=== PATIENT | male | born 1990 | race Caucasian/White ===

== ENCOUNTER 2016-10-11 16:20 | Inpatient (IN) | payer MEDICAID ==
[~2016-10-11] VITALS: Ht 162.6 cm; Wt 54.1 kg
[~2016-10-11 16:20] MED LIST: ASCO500 GT; BACL10TA GT; DIAZ10 GT; ESOM20CA31 GT; GLYC2TAB13 GT; LORA2TAB2 GT; METO10L GT; MIRALAX GT; PHEN-649 GT; PHEN50 GT; PHEN60TA15 GT; TIZA2TAB4 PO; TRIH2TAB3 GT
[2016-10-11] MEDS ORDERED: LORazepam 2 MG/ML VIAL IM ONE (16:45)
[2016-10-11] MEDS ORDERED: [UNRECOGNIZED DRUG - CODE] PO (16:46)
[2016-10-11] MEDS ORDERED: FAMO20 PO (16:46)
[2016-10-11] MEDS ORDERED: GENT100P5 IV (16:46)
[2016-10-11] MEDS ORDERED: LACT30L PO (16:46)
[2016-10-11] MEDS ORDERED: [UNRECOGNIZED DRUG - CODE] PO (16:46)
[2016-10-11 17:12] LABS: BASOPHILS # (AUTO) 0.03 K/uL (0.00-0.20); BASOPHILS % (AUTO) 0.5 % (0.0-2.0); EOSINOPHILS # (AUTO) 0.18 K/uL (0.00-0.70); EOSINOPHILS % (AUTO) 3.09 % (1.0-6.0); HEMATOCRIT 54.8 % (41-53); HEMOGLOBIN 18.1 g/dL (13.5-17.5); LYMPHOCYTES % (AUTO) 16.6 % (22.0-44.0); MEAN CORPUSCULAR HEMOGLOBIN 30.7 pg (26.0-34.0); MEAN CORPUSCULAR HGB CONC 33.1 G/dL (31.0-37.0); MEAN CORPUSCULAR VOLUME 93 fL (80-100); MONOCYTES # (AUTO) 0.4 K/uL (0.1-1.0); NEUTROPHILS # (AUTO) 4.2 K/uL (1.8-7.7); NEUTROPHILS % (AUTO) 72.9 % (40.0-70.0); PLATELET COUNT (AUTO) 206 K/uL (150-450); RED BLOOD CELL COUNT(AUTO) 5.91 MIL/uL (4.50-5.90); WHITE BLOOD COUNT (AUTO) 5.7 K/uL (4.5-11.0)
[2016-10-11 17:17] LABS: ANION GAP 12 mmol/L (8-16); CALCIUM, TOTAL 9.3 mg/dL (8.8-10.5); CARBON DIOXIDE 30 mmol/L (22-29); CHLORIDE 106 mmol/L (98-107); CREATININE 0.54 mg/dL (0.60-1.30); GLOMERULAR FILTR. RATE CALC > 60 mL/min (>60); INR 1.1 (0.9-1.1); POTASSIUM 3.9 mmol/L (3.5-5.1); PROTHROMBIN TIME 11.2 SEC (9.4-11.6); SODIUM SERUM 148 mmol/L (136-145); UREA NITROGEN, BLOOD 19 mg/dL (7-18)
[2016-10-11 17:24] LABS: AMMONIA 42 umol/L (11-32); LACTIC ACID 1.8 mmol/L (0.4-2.0)
[2016-10-11 17:27] LABS: TROPONIN I < 0.02 ng/mL (0.00-0.05)
[2016-10-11] MEDS ORDERED: ACETAMINOPHEN 650 MG RECTAL SUPPOSITORY PR ONE (17:30)
[2016-10-11] MEDS ORDERED: SODIUM CHLORIDE 0.9% 1,000 ML IV ONE ×2 (17:30→18:45)
[2016-10-11 17:31] LABS: ALANINE AMINOTRANSFERASE 54 U/L (12-78); ALBUMIN 4.9 g/dL (3.4-5.0); ASPARTATE AMINOTRANSFERASE 37 U/L (15-37); BILIRUBIN,TOTAL 0.4 mg/dL (0.1-1.0); TOTAL PROTEIN, SERUM 9.1 g/dL (6.4-8.2)
[2016-10-11 17:46] LABS: ACETAMINOPHEN < 2 mcg/mL (10-30)
[2016-10-11 18:00] LABS: SALICYLATE < 2.8 mg/dL (2.8-20.0)
[2016-10-11] MEDS ORDERED: LACTULOSE 200 GM/300 ML RECTAL SOLUTION PR ONE (18:30)
[2016-10-11 19:39] LABS: GLUCOSE,POINT OF CARE 87 MG/DL (70-110)
[2016-10-11 20:24] LABS: APPEARANCE,URINE TURBID (CLEAR); GLUCOSE, URINE (UA) NEGATIVE (NEGATIVE); KETONES,URINE 40 mg/dL (NEGATIVE); OCCULT BLOOD,URINE LARGE (NEGATIVE); PH,URINE 8.5 (5.0-8.0); PROTEIN,URINE SEE CONFIRM (NEGATIVE)
[2016-10-11 20:32] LABS: LEUKOCYTE ESTERASE ,URINE SMALL (NEGATIVE); RBC,URINE 51-100 /HPF (0-2); SULFOSALICYLIC ACID,URINE 3+ (Negative)
[2016-10-11 20:33] LABS: SQUAMOUS EPITHELIAL CELL,UR Rare /LPF (None Seen)
[2016-10-11 20:46] LABS: TRIPLE PHOSPHATE CRYSTAL,UR Moderate /LPF (None Seen)
[2016-10-11] MEDS ORDERED: PIPERACILLIN/TAZO 3.375 GM/D5W 50 ML IV SCH (21:00)
[2016-10-11] MEDS ORDERED: ONDANSETRON HCL 4 MG/2 ML VIAL IVP PRN (21:15)
[2016-10-11] MEDS ORDERED: 0.9% SODIUM CHLORIDE 10 ML SYRINGE IVP PRN (21:15)
[2016-10-11] MEDS ORDERED: ACETAMINOPHEN 325 MG TABLET PO PRN (21:15)
[2016-10-11] MEDS ORDERED: VANCOMYCIN HCL 1.5 GM in DEXTROSE 5%-WATER 250 ML IV ONE (21:30)
[2016-10-11] MEDS ORDERED: BISACODYL 10 MG RECTAL RECTAL SUPPOSITORY PR PRN (21:45)
[2016-10-11] MEDS ORDERED: MAGNESIUM HYDROXIDE SUSPENSION 30 ML UDCUP PO PRN (21:45)
[2016-10-11] MEDS ORDERED: ALBUTEROL SULFATE 2.5 MG/0.5 ML NEB SOLUTION NEB PRN (21:45)
[2016-10-11] MEDS ORDERED: DEXTROSE 5%-0.45% SODIUM CHL 1,000 ML IV ONE (21:45)
[2016-10-11] MEDS ORDERED: VANCOMYCIN HCL 1.5 GM in DEXTROSE 5%-WATER 250 ML IV SCH (22:00)
[2016-10-11 22:17] VITALS: BP 132/82
[2016-10-11 23:55] VITALS: BP 121/55
[2016-10-12] MEDS: HEPARIN SODIUM,PORCINE 5,000 UNITS/ML VIAL SQ SCH ×3 (00:24→15:54)
[2016-10-12] MEDS: PIPERACILLIN/TAZO 3.375 GM/D5W 50 ML IV SCH ×4 (03:24→20:46)
[2016-10-12 05:23] VITALS: BP 126/76
[2016-10-12 06:13] LABS: BASOPHILS % (AUTO) 0.3 % (0.0-2.0); EOSINOPHILS % (AUTO) 1.7 % (1.0-6.0); HEMATOCRIT 50.3 % (41-53); HEMOGLOBIN 16.1 g/dL (13.5-17.5); LYMPHOCYTES # (AUTO) 0.9 K/uL (1.0-4.8); LYMPHOCYTES % (AUTO) 14.1 % (22.0-44.0); MEAN CORPUSCULAR HEMOGLOBIN 30.2 pg (26.0-34.0); MEAN CORPUSCULAR HGB CONC 32.1 G/dL (31.0-37.0); MEAN CORPUSCULAR VOLUME 94 fL (80-100); MONOCYTES # (AUTO) 0.5 K/uL (0.1-1.0); NEUTROPHILS # (AUTO) 4.9 K/uL (1.8-7.7); NEUTROPHILS % (AUTO) 75.9 % (40.0-70.0); PLATELET COUNT (AUTO) 164 K/uL (150-450); RED BLOOD CELL COUNT(AUTO) 5.34 MIL/uL (4.50-5.90); RED CELL DISTRIBUTION WIDTH 14.2 % (11.5-14.5); WHITE BLOOD COUNT (AUTO) 6.5 K/uL (4.5-11.0)
[2016-10-12 06:48] LABS: ANION GAP 9 mmol/L (8-16); CALCIUM, TOTAL 7.9 mg/dL (8.8-10.5); CARBON DIOXIDE 31 mmol/L (22-29); CHLORIDE 110 mmol/L (98-107); CREATININE 0.41 mg/dL (0.60-1.30); GLOMERULAR FILTR. RATE CALC > 60 mL/min (>60); POTASSIUM 3.5 mmol/L (3.5-5.1); SODIUM SERUM 150 mmol/L (136-145); UREA NITROGEN, BLOOD 11 mg/dL (7-18)
[2016-10-12] MEDS ORDERED: VANCOMYCIN HCL 1.5 GM in DEXTROSE 5%-WATER 250 ML IV SCH ×2 (08:00)
[2016-10-12 08:01] VITALS: BP 139/74
[2016-10-12] MEDS: DOCUSATE SODIUM 100 MG CAPSULE PO SCH ×2 (09:00→20:46)
[2016-10-12] MEDS: PANTOPRAZOLE SODIUM 40 MG/VIAL IVP SCH (09:32)
[2016-10-12] MEDS ORDERED: [UNRECOGNIZED DRUG - REMARK] PO SCH (10:45)
[2016-10-12] MEDS ORDERED: PHENYTOIN 50 MG CHEWABLE TABLET GT SCH ×2 (10:45→16:00)
[2016-10-12] MEDS ORDERED: PHENOBARBITAL 30 MG/7.5 ML GT SCH ×2 (10:45→21:00)
[2016-10-12] MEDS ORDERED: TiZANidine HCL 4 MG TABLET GT SCH (11:00)
[2016-10-12 12:07] VITALS: BP 161/76
[2016-10-12] MEDS: POLYETHYLENE GLYCOL 3350 17 GM PACKET GT SCH (13:45)
[2016-10-12 15:33] LABS: ANION GAP 12 mmol/L (8-16); CALCIUM, TOTAL 8.7 mg/dL (8.8-10.5); CARBON DIOXIDE 32 mmol/L (22-29); CHLORIDE 107 mmol/L (98-107); CREATININE 0.65 mg/dL (0.60-1.30); GLOMERULAR FILTR. RATE CALC > 60 mL/min (>60); POTASSIUM 3.4 mmol/L (3.5-5.1); SODIUM SERUM 151 mmol/L (136-145); UREA NITROGEN, BLOOD 8 mg/dL (7-18)
[2016-10-12] MEDS ORDERED: DIAZ5 PO (15:40)
[2016-10-12 15:47] VITALS: BP 130/64
[2016-10-12] MEDS: TiZANidine HCL 4 MG TABLET GT SCH ×2 (15:53→20:45)
[2016-10-12] MEDS: GLYCOPYRROLATE 1 MG TABLET GT SCH ×2 (15:53→20:44)
[2016-10-12] MEDS: TRIHEXYPHENIDYL HCL 2 MG TABLET GT SCH ×2 (15:54→20:44)
[2016-10-12] MEDS: DIAZEPAM 5 MG TABLET GT SCH ×2 (15:55→20:45)
[2016-10-12] MEDS: BACLOFEN 10 MG TABLET GT SCH ×2 (15:58→20:47)
[2016-10-12] MEDS: ACETAMINOPHEN 325 MG TABLET PO PRN (15:59)
[2016-10-12] MEDS ORDERED: BACLOFEN 10 MG TABLET GT SCH (16:00)
[2016-10-12] MEDS ORDERED: DIAZEPAM 5 MG TABLET GT SCH (16:00)
[2016-10-12] MEDS: VANCOMYCIN HCL 1 GM/D5% WATER 200 ML IV SCH (17:33)
[2016-10-12] MEDS: PHENYTOIN 50 MG CHEWABLE TABLET GT SCH (17:34)
[2016-10-12] MEDS: LORazepam 2 MG/ML VIAL IVP PRN (17:43)
[2016-10-12 19:39] VITALS: BP 111/61
[2016-10-12 20:58] LABS: ANION GAP 5 mmol/L (8-16); CALCIUM, TOTAL 8.3 mg/dL (8.8-10.5); CARBON DIOXIDE 34 mmol/L (22-29); CHLORIDE 108 mmol/L (98-107); CREATININE 0.62 mg/dL (0.60-1.30); GLOMERULAR FILTR. RATE CALC > 60 mL/min (>60); POTASSIUM 3.2 mmol/L (3.5-5.1); SODIUM SERUM 147 mmol/L (136-145); UREA NITROGEN, BLOOD 9 mg/dL (7-18)
[2016-10-12] MEDS ORDERED: 0.9% SODIUM CHLORIDE 5 ML NEB SOLUTION NEB ONE (21:14)
[2016-10-12] MEDS: SODIUM CHLORIDE UR SCH (23:23)
[2016-10-12] MEDS: [UNRECOGNIZED DRUG - OTHER] UR SCH (23:23)
[2016-10-12] MEDS: GENTAMICIN UR SCH (23:23)
[2016-10-12 23:38] VITALS: BP 137/67
[2016-10-13] MEDS: VANCOMYCIN HCL 1 GM/D5% WATER 200 ML IV SCH ×2 (00:25→07:44)
[2016-10-13] MEDS: HEPARIN SODIUM,PORCINE 5,000 UNITS/ML VIAL SQ SCH ×4 (00:25→23:56)
[2016-10-13] MEDS: PIPERACILLIN/TAZO 3.375 GM/D5W 50 ML IV SCH ×4 (02:29→21:01)
[2016-10-13 02:50] LABS: ANION GAP 5 mmol/L (8-16); CALCIUM, TOTAL 7.9 mg/dL (8.8-10.5); CARBON DIOXIDE 33 mmol/L (22-29); CHLORIDE 106 mmol/L (98-107); CREATININE 0.76 mg/dL (0.60-1.30); GLOMERULAR FILTR. RATE CALC > 60 mL/min (>60); POTASSIUM 3.1 mmol/L (3.5-5.1); SODIUM SERUM 144 mmol/L (136-145); UREA NITROGEN, BLOOD 12 mg/dL (7-18)
[2016-10-13 04:43] VITALS: BP 130/78
[2016-10-13] MEDS: PHENYTOIN 50 MG CHEWABLE TABLET GT SCH ×2 (06:28→15:08)
[2016-10-13] MEDS: PHENOBARBITAL 30 MG/7.5 ML PO SCH ×2 (06:36→09:00)
[2016-10-13 07:03] LABS: BASOPHILS % (AUTO) 0.4 % (0.0-2.0); EOSINOPHILS % (AUTO) 1.9 % (1.0-6.0); HEMATOCRIT 49.7 % (41-53); HEMOGLOBIN 16.3 g/dL (13.5-17.5); LYMPHOCYTES # (AUTO) 1.1 K/uL (1.0-4.8); LYMPHOCYTES % (AUTO) 14.9 % (22.0-44.0); MEAN CORPUSCULAR HEMOGLOBIN 30.5 pg (26.0-34.0); MEAN CORPUSCULAR HGB CONC 32.9 G/dL (31.0-37.0); MEAN CORPUSCULAR VOLUME 93 fL (80-100); MONOCYTES # (AUTO) 0.6 K/uL (0.1-1.0); MONOCYTES % (AUTO) 8.5 % (2.0-9.0); NEUTROPHILS # (AUTO) 5.3 K/uL (1.8-7.7); NEUTROPHILS % (AUTO) 74.3 % (40.0-70.0); PLATELET COUNT (AUTO) 154 K/uL (150-450); RED BLOOD CELL COUNT(AUTO) 5.35 MIL/uL (4.50-5.90); RED CELL DISTRIBUTION WIDTH 14.1 % (11.5-14.5); WHITE BLOOD COUNT (AUTO) 7.1 K/uL (4.5-11.0)
[2016-10-13 07:29] LABS: ALANINE AMINOTRANSFERASE 44 U/L (12-78); ALBUMIN 4.1 g/dL (3.4-5.0); ANION GAP 8 mmol/L (8-16); ASPARTATE AMINOTRANSFERASE 41 U/L (15-37); BILIRUBIN,TOTAL 0.5 mg/dL (0.1-1.0); CALCIUM, TOTAL 8.8 mg/dL (8.8-10.5); CARBON DIOXIDE 32 mmol/L (22-29); CHLORIDE 106 mmol/L (98-107); CHOL/HDL RATIO 2.4 (4.2-7.3); CREATININE 0.93 mg/dL (0.60-1.30); GLOMERULAR FILTR. RATE CALC > 60 mL/min (>60); PHOSPHORUS 2.9 mg/dL (2.5-4.9); POTASSIUM 3.6 mmol/L (3.5-5.1); SODIUM SERUM 146 mmol/L (136-145); THYROID STIMULATING HORMONE 1.15 uIU/mL (0.36-3.74); TOTAL PROTEIN, SERUM 7.9 g/dL (6.4-8.2); UREA NITROGEN, BLOOD 14 mg/dL (7-18)
[2016-10-13 08:16] VITALS: BP 130/79
[2016-10-13 09:46] LABS: PHENOBARBITAL 54 mcg/mL (15-40)
[2016-10-13] MEDS: DIAZEPAM 5 MG TABLET GT SCH ×3 (09:47→21:00)
[2016-10-13] MEDS: ASCORBIC ACID 500 MG TABLET GT SCH (09:47)
[2016-10-13] MEDS: PANTOPRAZOLE SODIUM 40 MG/VIAL IVP SCH (09:47)
[2016-10-13] MEDS: DOCUSATE SODIUM 100 MG CAPSULE PO SCH ×2 (09:48→21:03)
[2016-10-13] MEDS: POLYETHYLENE GLYCOL 3350 17 GM PACKET GT SCH (09:48)
[2016-10-13] MEDS: TiZANidine HCL 4 MG TABLET GT SCH ×3 (09:49→21:02)
[2016-10-13] MEDS: TRIHEXYPHENIDYL HCL 2 MG TABLET GT SCH ×3 (09:49→21:00)
[2016-10-13] MEDS: BACLOFEN 10 MG TABLET GT SCH ×3 (09:50→21:00)
[2016-10-13] MEDS: GLYCOPYRROLATE 1 MG TABLET GT SCH ×3 (09:51→21:00)
[2016-10-13 12:21] VITALS: BP 117/71
[2016-10-13 16:07] VITALS: BP 120/71
[2016-10-13 16:17] LABS: ANION GAP 10 mmol/L (8-16); CALCIUM, TOTAL 8.3 mg/dL (8.8-10.5); CARBON DIOXIDE 31 mmol/L (22-29); CHLORIDE 106 mmol/L (98-107); CREATININE 1.19 mg/dL (0.60-1.30); GLOMERULAR FILTR. RATE CALC > 60 mL/min (>60); POTASSIUM 3.7 mmol/L (3.5-5.1); SODIUM SERUM 147 mmol/L (136-145); UREA NITROGEN, BLOOD 17 mg/dL (7-18)
[2016-10-13 20:00] VITALS: BP 136/93
[2016-10-13] MEDS ORDERED: PHENOBARBITAL 30 MG/7.5 ML PO SCH (21:00)
[2016-10-13] MEDS: SODIUM CHLORIDE UR SCH (21:01)
[2016-10-13] MEDS: GENTAMICIN UR SCH (21:01)
[2016-10-13] MEDS: [UNRECOGNIZED DRUG - OTHER] UR SCH (21:01)
[2016-10-13 21:55] LABS: CALCIUM, TOTAL 8.8 mg/dL (8.8-10.5); CREATININE 1.57 mg/dL (0.60-1.30); POTASSIUM 3.7 mmol/L (3.5-5.1)
[2016-10-13 23:44] VITALS: BP 119/60
[2016-10-13] MEDS: OxyCODONE HCL/ACETAMINOPHEN 5-325 MG TABLET PO PRN (23:59)
[2016-10-14] MEDS: PIPERACILLIN/TAZO 3.375 GM/D5W 50 ML IV SCH ×2 (02:36→07:38)
[2016-10-14] MEDS: LORazepam 2 MG/ML VIAL IVP PRN (03:05)
[2016-10-14 05:07] VITALS: BP 101/49
[2016-10-14] MEDS: DIAZEPAM 5 MG TABLET GT SCH ×4 (07:30→22:25)
[2016-10-14] MEDS: POLYETHYLENE GLYCOL 3350 17 GM PACKET GT SCH (07:30)
[2016-10-14] MEDS: ASCORBIC ACID 500 MG TABLET GT SCH (07:30)
[2016-10-14] MEDS: HEPARIN SODIUM,PORCINE 5,000 UNITS/ML VIAL SQ SCH ×2 (07:30→16:18)
[2016-10-14 07:31] LABS: BASOPHILS # (AUTO) 0.01 K/uL (0.00-0.20); BASOPHILS % (AUTO) 0.2 % (0.0-2.0); EOSINOPHILS # (AUTO) 0.02 K/uL (0.00-0.70); EOSINOPHILS % (AUTO) 0.37 % (1.0-6.0); HEMATOCRIT 45.7 % (41-53); LYMPHOCYTES # (AUTO) 0.6 K/uL (1.0-4.8); LYMPHOCYTES % (AUTO) 9.5 % (22.0-44.0); MEAN CORPUSCULAR HEMOGLOBIN 30.6 pg (26.0-34.0); MEAN CORPUSCULAR HGB CONC 32.8 G/dL (31.0-37.0); MEAN CORPUSCULAR VOLUME 93 fL (80-100); MONOCYTES # (AUTO) 0.6 K/uL (0.1-1.0); MONOCYTES % (AUTO) 9.5 % (2.0-9.0); NEUTROPHILS # (AUTO) 5.4 K/uL (1.8-7.7); NEUTROPHILS % (AUTO) 80.4 % (40.0-70.0); PLATELET COUNT (AUTO) 175 K/uL (150-450); RED CELL DISTRIBUTION WIDTH 14.1 % (11.5-14.5); WHITE BLOOD COUNT (AUTO) 6.7 K/uL (4.5-11.0)
[2016-10-14] MEDS: PHENYTOIN 50 MG CHEWABLE TABLET GT SCH ×2 (07:31→16:32)
[2016-10-14] MEDS: GLYCOPYRROLATE 1 MG TABLET GT SCH ×3 (07:31→22:25)
[2016-10-14] MEDS: BACLOFEN 10 MG TABLET GT SCH (07:32)
[2016-10-14] MEDS: TRIHEXYPHENIDYL HCL 2 MG TABLET GT SCH ×3 (07:33→22:24)
[2016-10-14] MEDS: TiZANidine HCL 4 MG TABLET GT SCH ×3 (07:34→22:25)
[2016-10-14] MEDS: DOCUSATE SODIUM 100 MG CAPSULE PO SCH ×2 (07:37→22:26)
[2016-10-14] MEDS: PANTOPRAZOLE SODIUM 40 MG/VIAL IVP SCH (07:37)
[2016-10-14] MEDS: PHENOBARBITAL 30 MG/7.5 ML PO SCH (07:38)
[2016-10-14 07:54] LABS: ALBUMIN 3.6 g/dL (3.4-5.0); BILIRUBIN,TOTAL 0.4 mg/dL (0.1-1.0); CALCIUM, TOTAL 8.3 mg/dL (8.8-10.5); CREATININE 1.97 mg/dL (0.60-1.30); POTASSIUM 3.2 mmol/L (3.5-5.1); TOTAL PROTEIN, SERUM 7.3 g/dL (6.4-8.2)
[2016-10-14] MEDS ORDERED: VANCOMYCIN HCL 1 GM/D5% WATER 200 ML IV SCH (08:00)
[2016-10-14 09:04] VITALS: BP 103/49
[2016-10-14] MEDS ORDERED: SODIUM CHLORIDE 0.9% 500 ML IV ONE (11:15)
[2016-10-14] MEDS ORDERED: POTASSIUM CHL 10 MEQ/WATER 50 ML IV SCH (11:30)
[2016-10-14 11:32] LABS: BASOPHILS % (AUTO) 0.6 % (0.0-2.0); EOSINOPHILS % (AUTO) 1.2 % (1.0-6.0); HEMATOCRIT 44.6 % (41-53); HEMOGLOBIN 14.8 g/dL (13.5-17.5); LYMPHOCYTES # (AUTO) 1.3 K/uL (1.0-4.8); LYMPHOCYTES % (AUTO) 22.2 % (22.0-44.0); MEAN CORPUSCULAR HEMOGLOBIN 30.1 pg (26.0-34.0); MEAN CORPUSCULAR HGB CONC 33.1 G/dL (31.0-37.0); MEAN CORPUSCULAR VOLUME 91 fL (80-100); MONOCYTES # (AUTO) 0.7 K/uL (0.1-1.0); MONOCYTES % (AUTO) 11.1 % (2.0-9.0); NEUTROPHILS # (AUTO) 3.9 K/uL (1.8-7.7); NEUTROPHILS % (AUTO) 64.9 % (40.0-70.0); PLATELET COUNT (AUTO) 143 K/uL (150-450); RED BLOOD CELL COUNT(AUTO) 4.91 MIL/uL (4.50-5.90); RED CELL DISTRIBUTION WIDTH 14.1 % (11.5-14.5); WHITE BLOOD COUNT (AUTO) 5.9 K/uL (4.5-11.0)
[2016-10-14 11:42] LABS: ABG A-A DIFF O2 515.3 mmHg (10-20.0); ABG BASE EXCESS 0.4 mmol/L (-2.0-3.0); ABG HCO3 24.5 mmol/L (22.0-26.0); ABG OXYHEMOGLOBIN 97.9 % (94.0-100.0); ABG PCO2 46 mmHg (35-45); ABG PH 7.365 (7.350-7.450); TEMPERATURE, FAHRENHEIT, BG 98.3 FAHREN (96.0-98.6)
[2016-10-14 11:43] LABS: CALCIUM, TOTAL 8.1 mg/dL (8.8-10.5); CREATININE 2.36 mg/dL (0.60-1.30); POTASSIUM 3.4 mmol/L (3.5-5.1)
[2016-10-14 11:43] LABS: ALLEN TEST, BLOOD GAS Positive
[2016-10-14 11:48] LABS: ALBUMIN 3.3 g/dL (3.4-5.0); BILIRUBIN,TOTAL 0.5 mg/dL (0.1-1.0); TOTAL PROTEIN, SERUM 6.8 g/dL (6.4-8.2)
[2016-10-14] MEDS ORDERED: ALBUMIN HUMAN 5%-12.5GM/250ML 250 ML IV ONE ×2 (13:20→13:24)
[2016-10-14] MEDS ORDERED: DEXTROSE 5%-0.45% SODIUM CHL 1,000 ML IV SCH (13:46)
[2016-10-14] MEDS: CefTRIAXone 1 GM/DEXTROSE 50 ML IV SCH (14:31)
[2016-10-14] MEDS ORDERED: RAPID SEQUENCE KIT [RSI] 1 EACH KIT ONE ×2 (14:39)
[2016-10-14] MEDS ORDERED: LORazepam 2 MG/ML VIAL IVP ONE (14:45)
[2016-10-14] MEDS ORDERED: PROPOFOL 1000 MG/ISO-OSM 100 ML IV ONE (14:57)
[2016-10-14] MEDS ORDERED: *CLINICAL-RX DOSING [ENTER DRUG IN COMMENTS] CLINICAL ONE (15:15)
[2016-10-14] MEDS: SODIUM BICARBONATE 75 MEQ in DEXTROSE 5%-WATER 1,000 ML IV SCH (15:46)
[2016-10-14 16:00] VITALS: BP 112/50
[2016-10-14] MEDS: PHENOBARBITAL 30 MG/7.5 ML PEG SCH (16:17)
[2016-10-14 16:18] LABS: ABG A-A DIFF O2 560.8 mmHg (10-20.0); ABG BASE EXCESS 1.1 mmol/L (-2.0-3.0); ABG HCO3 25.7 mmol/L (22.0-26.0); ABG OXYHEMOGLOBIN 97.4 % (94.0-100.0); ABG PCO2 38 mmHg (35-45); ABG PH 7.443 (7.350-7.450); ALLEN TEST, BLOOD GAS Positive; TEMPERATURE, FAHRENHEIT, BG 100.4 FAHREN (96.0-98.6)
[2016-10-14] MEDS: LevETIRAcetam 500 MG in DEXTROSE 5%-WATER 100 ML IV SCH (16:36)
[2016-10-14] MEDS ORDERED: VECURONIUM BROMIDE 10 MG/VIAL IV ONE (16:47)
[2016-10-14] MEDS ORDERED: ETOMIDATE 2 MG/ML 10 ML VIAL IV ONE (16:47)
[2016-10-14] MEDS ORDERED: PIPERACILLIN/TAZO 3.375 GM/D5W 50 ML IV SCH (17:00)
[2016-10-14] MEDS ORDERED: 0.9% SODIUM CHLORIDE 10 ML SYRINGE IVP PRN (18:15)
[2016-10-14 20:00] VITALS: BP 116/44
[2016-10-14 20:38] LABS: CALCIUM, TOTAL 7.9 mg/dL (8.8-10.5); CREATININE 2.28 mg/dL (0.60-1.30)
[2016-10-14 20:47] LABS: POTASSIUM 2.9 mmol/L (3.5-5.1)
[2016-10-14] MEDS ORDERED: POTASSIUM CHLORIDE 10% 40 MEQ/30 ML LIQUID UDCUP PEG ONE (21:30)
[2016-10-14] MEDS: POTASSIUM CHL 10 MEQ/WATER 50 ML IV SCH ×2 (21:55→23:15)
[2016-10-14 22:11] LABS: PHOSPHORUS 2.2 mg/dL (2.5-4.9)
[2016-10-15] VITALS (7 sets, daily range): BP systolic 107–128; BP diastolic 44–79
[2016-10-15] MEDS: PROPOFOL 1000 MG/ISO-OSM 100 ML IV SCH ×3 (00:35→19:05)
[2016-10-15] MEDS: SODIUM BICARBONATE 75 MEQ in DEXTROSE 5%-WATER 1,000 ML IV SCH ×2 (00:36→11:44)
[2016-10-15] MEDS: HEPARIN SODIUM,PORCINE 5,000 UNITS/ML VIAL SQ SCH ×3 (00:36→16:33)
[2016-10-15 02:19] LABS: CALCIUM, TOTAL 7.6 mg/dL (8.8-10.5); CREATININE 2.38 mg/dL (0.60-1.30); POTASSIUM 3.6 mmol/L (3.5-5.1)
[2016-10-15] MEDS: LevETIRAcetam 500 MG in DEXTROSE 5%-WATER 100 ML IV SCH ×2 (04:16→16:33)
[2016-10-15 05:57] LABS: GLUCOSE,POINT OF CARE 96 MG/DL (70-110)
[2016-10-15 06:35] LABS: BASOPHILS % (AUTO) 0.4 % (0.0-2.0); EOSINOPHILS % (AUTO) 3.2 % (1.0-6.0); HEMATOCRIT 42.5 % (41-53); HEMOGLOBIN 13.9 g/dL (13.5-17.5); LYMPHOCYTES # (AUTO) 1.8 K/uL (1.0-4.8); LYMPHOCYTES % (AUTO) 29.2 % (22.0-44.0); MEAN CORPUSCULAR HEMOGLOBIN 30.2 pg (26.0-34.0); MEAN CORPUSCULAR HGB CONC 32.6 G/dL (31.0-37.0); MEAN CORPUSCULAR VOLUME 93 fL (80-100); MONOCYTES # (AUTO) 0.5 K/uL (0.1-1.0); MONOCYTES % (AUTO) 7.9 % (2.0-9.0); NEUTROPHILS # (AUTO) 3.7 K/uL (1.8-7.7); NEUTROPHILS % (AUTO) 59.3 % (40.0-70.0); PLATELET COUNT (AUTO) 121 K/uL (150-450); RED BLOOD CELL COUNT(AUTO) 4.59 MIL/uL (4.50-5.90); RED CELL DISTRIBUTION WIDTH 14.3 % (11.5-14.5); WHITE BLOOD COUNT (AUTO) 6.3 K/uL (4.5-11.0)
[2016-10-15] MEDS: PHENYTOIN 50 MG CHEWABLE TABLET GT SCH ×2 (08:00→16:30)
[2016-10-15 08:17] LABS: CALCIUM, TOTAL 7.7 mg/dL (8.8-10.5); CREATININE 2.09 mg/dL (0.60-1.30); POTASSIUM 3.7 mmol/L (3.5-5.1)
[2016-10-15] MEDS: POLYETHYLENE GLYCOL 3350 17 GM PACKET GT SCH (08:18)
[2016-10-15] MEDS: TiZANidine HCL 4 MG TABLET GT SCH ×3 (08:19→21:13)
[2016-10-15] MEDS: TRIHEXYPHENIDYL HCL 2 MG TABLET GT SCH ×3 (08:20→21:12)
[2016-10-15] MEDS: GLYCOPYRROLATE 1 MG TABLET GT SCH ×3 (08:20→21:12)
[2016-10-15] MEDS: DIAZEPAM 5 MG TABLET GT SCH ×3 (08:21→21:13)
[2016-10-15] MEDS: DOCUSATE SODIUM 100 MG CAPSULE PO SCH ×2 (08:21→22:04)
[2016-10-15] MEDS: PANTOPRAZOLE SODIUM 40 MG/VIAL IVP SCH (08:22)
[2016-10-15] MEDS: PHENOBARBITAL 30 MG/7.5 ML PEG SCH (08:22)
[2016-10-15] MEDS: ASCORBIC ACID 500 MG TABLET GT SCH (09:00)
[2016-10-15 09:21] LABS: ALBUMIN 3.1 g/dL (3.4-5.0); BILIRUBIN,TOTAL 0.4 mg/dL (0.1-1.0); CALCIUM, TOTAL 7.5 mg/dL (8.8-10.5); CREATININE 2.33 mg/dL (0.60-1.30); PHOSPHORUS 2.4 mg/dL (2.5-4.9); POTASSIUM 3.6 mmol/L (3.5-5.1); TOTAL PROTEIN, SERUM 6.6 g/dL (6.4-8.2)
[2016-10-15] MEDS: LORazepam 2 MG/ML VIAL IVP PRN (13:00)
[2016-10-15] MEDS ORDERED: MIDAZOLAM HCL 100 MG in DEXTROSE 5%-WATER 180 ML IV PRN (13:30)
[2016-10-15 14:39] LABS: CALCIUM, TOTAL 7.9 mg/dL (8.8-10.5); CREATININE 2.01 mg/dL (0.60-1.30); POTASSIUM 3.6 mmol/L (3.5-5.1)
[2016-10-15] MEDS: DEXTROSE 5%-0.45% SODIUM CHL 1,000 ML IV SCH (14:39)
[2016-10-15] MEDS: CefTRIAXone 1 GM/DEXTROSE 50 ML IV SCH (14:41)
[2016-10-15 20:37] LABS: CALCIUM, TOTAL 7.7 mg/dL (8.8-10.5); CREATININE 1.87 mg/dL (0.60-1.30); POTASSIUM 3.3 mmol/L (3.5-5.1)
[2016-10-16] VITALS: BP 115/77
[2016-10-16] MEDS: HEPARIN SODIUM,PORCINE 5,000 UNITS/ML VIAL SQ SCH ×3 (00:05→16:12)
[2016-10-16] MEDS: MIDAZOLAM HCL 100 MG in DEXTROSE 5%-WATER 180 ML IV PRN ×2 (01:56→18:53)
[2016-10-16 04:00] VITALS: BP 145/53
[2016-10-16] MEDS: LevETIRAcetam 500 MG in DEXTROSE 5%-WATER 100 ML IV SCH ×2 (05:10→16:12)
[2016-10-16] MEDS ORDERED: SODIUM CHLORIDE 0.9% 250 ML IV ONE ×2 (05:19→15:52)
[2016-10-16] MEDS: DEXTROSE 5%-0.45% SODIUM CHL 1,000 ML IV SCH (05:33)
[2016-10-16 06:04] LABS: BASOPHILS % (AUTO) 0.3 % (0.0-2.0); EOSINOPHILS % (AUTO) 4.3 % (1.0-6.0); HEMATOCRIT 45.5 % (41-53); HEMOGLOBIN 14.5 g/dL (13.5-17.5); LYMPHOCYTES % (AUTO) 18.9 % (22.0-44.0); MEAN CORPUSCULAR HEMOGLOBIN 29.7 pg (26.0-34.0); MEAN CORPUSCULAR VOLUME 93 fL (80-100); MONOCYTES # (AUTO) 0.4 K/uL (0.1-1.0); MONOCYTES % (AUTO) 7.3 % (2.0-9.0); NEUTROPHILS # (AUTO) 3.8 K/uL (1.8-7.7); NEUTROPHILS % (AUTO) 69.2 % (40.0-70.0); PLATELET COUNT (AUTO) 160 K/uL (150-450); RED BLOOD CELL COUNT(AUTO) 4.89 MIL/uL (4.50-5.90); RED CELL DISTRIBUTION WIDTH 14.4 % (11.5-14.5); WHITE BLOOD COUNT (AUTO) 5.6 K/uL (4.5-11.0)
[2016-10-16 06:07] LABS: CREATININE 1.67 mg/dL (0.60-1.30); POTASSIUM 3.3 mmol/L (3.5-5.1)
[2016-10-16] MEDS: PHENYTOIN 50 MG CHEWABLE TABLET GT SCH ×2 (07:00→16:11)
[2016-10-16] MEDS ORDERED: *CLINICAL-LEVOFLOXACIN IVPB DOSING CLINICAL ONE ×2 (07:15)
[2016-10-16 08:00] VITALS: BP 147/61
[2016-10-16] MEDS: LEVOFLOXACIN 750 MG/D5% WATER 150 ML IV SCH (08:35)
[2016-10-16] MEDS: PANTOPRAZOLE SODIUM 40 MG/VIAL IVP SCH (08:35)
[2016-10-16] MEDS: POTASSIUM CHL 10 MEQ/WATER 50 ML IV SCH ×2 (08:35→11:57)
[2016-10-16] MEDS: DIAZEPAM 5 MG TABLET GT SCH ×3 (08:36→21:14)
[2016-10-16] MEDS: PHENOBARBITAL 30 MG/7.5 ML PEG SCH (08:36)
[2016-10-16] MEDS: LORazepam 2 MG/ML VIAL IVP PRN (08:36)
[2016-10-16] MEDS: DOCUSATE SODIUM 100 MG CAPSULE PO SCH ×2 (08:36→21:14)
[2016-10-16] MEDS: ASCORBIC ACID 500 MG TABLET GT SCH (08:36)
[2016-10-16] MEDS: TiZANidine HCL 4 MG TABLET GT SCH ×3 (08:37→21:14)
[2016-10-16] MEDS: GLYCOPYRROLATE 1 MG TABLET GT SCH ×3 (08:37→21:13)
[2016-10-16] MEDS: TRIHEXYPHENIDYL HCL 2 MG TABLET GT SCH ×3 (08:37→21:13)
[2016-10-16] MEDS: POLYETHYLENE GLYCOL 3350 17 GM PACKET GT SCH (08:37)
[2016-10-16 10:01] LABS: ABG A-A DIFF O2 68.7 mmHg (10-20.0); ABG BASE EXCESS 5.7 mmol/L (-2.0-3.0); ABG HCO3 29.2 mmol/L (22.0-26.0); ABG OXYHEMOGLOBIN 98.7 % (94.0-100.0); ABG PCO2 42 mmHg (35-45); ABG PH 7.462 (7.350-7.450)
[2016-10-16 10:03] LABS: ALLEN TEST, BLOOD GAS Positive
[2016-10-16 16:00] VITALS: BP 104/76
[2016-10-16 20:00] VITALS: BP 95/43
[2016-10-16] MEDS ORDERED: SODIUM CHLORIDE 0.9% 500 ML IV ONE (22:03)
[2016-10-17] VITALS (8 sets, daily range): BP systolic 104–136; BP diastolic 31–88
[2016-10-17] MEDS: HEPARIN SODIUM,PORCINE 5,000 UNITS/ML VIAL SQ SCH ×3 (01:19→16:14)
[2016-10-17] MEDS: OxyCODONE HCL/ACETAMINOPHEN 5-325 MG TABLET PO PRN ×2 (01:20→08:17)
[2016-10-17] MEDS: LevETIRAcetam 500 MG in DEXTROSE 5%-WATER 100 ML IV SCH ×2 (03:41→16:15)
[2016-10-17 05:33] LABS: ANION GAP 9 mmol/L (8-16); CALCIUM, TOTAL 8.2 mg/dL (8.8-10.5); CARBON DIOXIDE 28 mmol/L (22-29); CHLORIDE 106 mmol/L (98-107); CREATININE 1.33 mg/dL (0.60-1.30); GLOMERULAR FILTR. RATE CALC > 60 mL/min (>60); SODIUM SERUM 143 mmol/L (136-145)
[2016-10-17 06:19] LABS: UREA NITROGEN, BLOOD 24 mg/dL (7-18)
[2016-10-17] MEDS: PHENYTOIN 50 MG CHEWABLE TABLET GT SCH ×2 (07:11→16:14)
[2016-10-17] MEDS: ASCORBIC ACID 500 MG TABLET GT SCH (08:15)
[2016-10-17] MEDS: PANTOPRAZOLE SODIUM 40 MG/VIAL IVP SCH (08:15)
[2016-10-17] MEDS: LEVOFLOXACIN 750 MG/D5% WATER 150 ML IV SCH (08:15)
[2016-10-17] MEDS: PHENOBARBITAL 30 MG/7.5 ML PEG SCH (08:15)
[2016-10-17] MEDS: DIAZEPAM 5 MG TABLET GT SCH ×3 (08:16→22:21)
[2016-10-17] MEDS: DOCUSATE SODIUM 100 MG CAPSULE PO SCH ×2 (08:16→22:19)
[2016-10-17] MEDS: TiZANidine HCL 4 MG TABLET GT SCH ×3 (08:16→22:21)
[2016-10-17] MEDS: POLYETHYLENE GLYCOL 3350 17 GM PACKET GT SCH (08:16)
[2016-10-17] MEDS: TRIHEXYPHENIDYL HCL 2 MG TABLET GT SCH ×3 (08:16→22:21)
[2016-10-17] MEDS: GLYCOPYRROLATE 1 MG TABLET GT SCH ×3 (08:17→22:22)
[2016-10-17] MEDS: LORazepam 2 MG/ML VIAL IVP PRN ×2 (10:36→14:28)
[2016-10-17] MEDS: MIDAZOLAM HCL 100 MG in DEXTROSE 5%-WATER 180 ML IV PRN (10:36)
[2016-10-17] MEDS: LORazepam 2 MG/ML VIAL IM PRN ×2 (16:14→22:37)
[2016-10-17] MEDS: ACETAMINOPHEN 325 MG TABLET PO PRN (17:48)
[2016-10-18] VITALS: BP 118/73
[2016-10-18] MEDS: HEPARIN SODIUM,PORCINE 5,000 UNITS/ML VIAL SQ SCH ×3 (01:23→15:54)
[2016-10-18 04:00] VITALS: BP 143/96
[2016-10-18] MEDS: LevETIRAcetam 500 MG in DEXTROSE 5%-WATER 100 ML IV SCH ×2 (04:29→15:35)
[2016-10-18] MEDS: ACETAMINOPHEN 325 MG TABLET PO PRN (04:30)
[2016-10-18] MEDS ORDERED: SODIUM CHLORIDE 0.9% 250 ML IV ONE (04:34)
[2016-10-18] MEDS: LORazepam 2 MG/ML VIAL IM PRN (05:20)
[2016-10-18] MEDS: PHENYTOIN 50 MG CHEWABLE TABLET GT SCH (05:20)
[2016-10-18 05:26] LABS: BASOPHILS # (AUTO) 0.01 K/uL (0.00-0.20); BASOPHILS % (AUTO) 0.2 % (0.0-2.0); EOSINOPHILS # (AUTO) 0.16 K/uL (0.00-0.70); EOSINOPHILS % (AUTO) 2.82 % (1.0-6.0); HEMATOCRIT 43.6 % (41-53); HEMOGLOBIN 14.2 g/dL (13.5-17.5); LYMPHOCYTES # (AUTO) 0.9 K/uL (1.0-4.8); LYMPHOCYTES % (AUTO) 15.5 % (22.0-44.0); MEAN CORPUSCULAR HEMOGLOBIN 30.6 pg (26.0-34.0); MEAN CORPUSCULAR HGB CONC 32.6 G/dL (31.0-37.0); MEAN CORPUSCULAR VOLUME 94 fL (80-100); MONOCYTES # (AUTO) 0.4 K/uL (0.1-1.0); MONOCYTES % (AUTO) 6.4 % (2.0-9.0); NEUTROPHILS # (AUTO) 4.2 K/uL (1.8-7.7); NEUTROPHILS % (AUTO) 75.1 % (40.0-70.0); PLATELET COUNT (AUTO) 159 K/uL (150-450); RED BLOOD CELL COUNT(AUTO) 4.65 MIL/uL (4.50-5.90); RED CELL DISTRIBUTION WIDTH 14.3 % (11.5-14.5); WHITE BLOOD COUNT (AUTO) 5.6 K/uL (4.5-11.0)
[2016-10-18 06:21] LABS: ANION GAP 8 mmol/L (8-16); CALCIUM, TOTAL 8.8 mg/dL (8.8-10.5); CARBON DIOXIDE 27 mmol/L (22-29); CHLORIDE 108 mmol/L (98-107); CREATININE 1.16 mg/dL (0.60-1.30); GLOMERULAR FILTR. RATE CALC > 60 mL/min (>60); POTASSIUM 4.3 mmol/L (3.5-5.1); SODIUM SERUM 143 mmol/L (136-145); UREA NITROGEN, BLOOD 26 mg/dL (7-18)
[2016-10-18 08:00] VITALS: BP 162/129
[2016-10-18] MEDS: LEVOFLOXACIN 750 MG/D5% WATER 150 ML IV SCH (08:47)
[2016-10-18] MEDS: POLYETHYLENE GLYCOL 3350 17 GM PACKET GT SCH (09:22)
[2016-10-18] MEDS: PHENOBARBITAL 30 MG/7.5 ML PEG SCH (09:23)
[2016-10-18] MEDS: ASCORBIC ACID 500 MG TABLET GT SCH (09:23)
[2016-10-18] MEDS: PANTOPRAZOLE SODIUM 40 MG/VIAL IVP SCH (09:23)
[2016-10-18] MEDS: DOCUSATE SODIUM 100 MG CAPSULE PO SCH ×2 (09:24→21:24)
[2016-10-18] MEDS: DIAZEPAM 5 MG TABLET GT SCH ×3 (09:24→21:24)
[2016-10-18] MEDS: TiZANidine HCL 4 MG TABLET GT SCH ×3 (09:32→21:24)
[2016-10-18] MEDS: TRIHEXYPHENIDYL HCL 2 MG TABLET GT SCH ×3 (09:32→21:23)
[2016-10-18] MEDS: GLYCOPYRROLATE 1 MG TABLET GT SCH ×3 (09:33→21:23)
[2016-10-18] MEDS ORDERED: DEXTROSE 5%-0.45% SODIUM CHL 1,000 ML IV ONE (10:15)
[2016-10-18] MEDS ORDERED: METOCLOPRAMIDE HCL 5 MG/ML 2 ML VIAL IVP ONE (10:30)
[2016-10-18] MEDS ORDERED: LORazepam 2 MG/ML VIAL IVP PRN (10:45)
[2016-10-18 12:00] VITALS: BP 179/119
[2016-10-18] MEDS: METOCLOPRAMIDE HCL 5 MG/ML 2 ML VIAL IVP SCH (15:55)
[2016-10-18 16:00] VITALS: BP 133/93
[2016-10-18] MEDS ORDERED: PHENYTOIN SODIUM 200 MG in SODIUM CHLORIDE 0.9% 100 ML IV SCH (16:00)
[2016-10-18 20:00] VITALS: BP 196/116
[2016-10-19] VITALS (8 sets, daily range): BP systolic 94–165; BP diastolic 49–108
[2016-10-19] MEDS: HEPARIN SODIUM,PORCINE 5,000 UNITS/ML VIAL SQ SCH ×4 (00:59→23:54)
[2016-10-19] MEDS: METOCLOPRAMIDE HCL 5 MG/ML 2 ML VIAL IVP SCH ×4 (01:00→23:54)
[2016-10-19] MEDS: LORazepam 2 MG/ML VIAL IVP PRN ×6 (01:14→23:57)
[2016-10-19] MEDS: ACETAMINOPHEN 325 MG TABLET PO PRN ×2 (04:43→21:32)
[2016-10-19] MEDS: LevETIRAcetam 500 MG in DEXTROSE 5%-WATER 100 ML IV SCH ×2 (04:43→17:08)
[2016-10-19] MEDS ORDERED: SODIUM CHLORIDE 0.9% IV SCH (07:00)
[2016-10-19] MEDS ORDERED: PHENYTOIN SODIUM IV SCH (07:00)
[2016-10-19] MEDS: LEVOFLOXACIN 750 MG/D5% WATER 150 ML IV SCH (09:20)
[2016-10-19] MEDS: PANTOPRAZOLE SODIUM 40 MG/VIAL IVP SCH (09:22)
[2016-10-19 09:23] LABS: BASOPHILS # (AUTO) 0.01 K/uL (0.00-0.20); BASOPHILS % (AUTO) 0.3 % (0.0-2.0); EOSINOPHILS # (AUTO) 0.07 K/uL (0.00-0.70); HEMATOCRIT 39.9 % (41-53); HEMOGLOBIN 13.2 g/dL (13.5-17.5); LYMPHOCYTES # (AUTO) 0.6 K/uL (1.0-4.8); LYMPHOCYTES % (AUTO) 13.9 % (22.0-44.0); MEAN CORPUSCULAR HEMOGLOBIN 30.5 pg (26.0-34.0); MEAN CORPUSCULAR HGB CONC 33.1 G/dL (31.0-37.0); MEAN CORPUSCULAR VOLUME 92 fL (80-100); MONOCYTES # (AUTO) 0.3 K/uL (0.1-1.0); MONOCYTES % (AUTO) 6.8 % (2.0-9.0); NEUTROPHILS # (AUTO) 3.3 K/uL (1.8-7.7); NEUTROPHILS % (AUTO) 77.5 % (40.0-70.0); PLATELET COUNT (AUTO) 161 K/uL (150-450); RED BLOOD CELL COUNT(AUTO) 4.34 MIL/uL (4.50-5.90); RED CELL DISTRIBUTION WIDTH 13.6 % (11.5-14.5); WHITE BLOOD COUNT (AUTO) 4.2 K/uL (4.5-11.0)
[2016-10-19] MEDS: DOCUSATE SODIUM 100 MG CAPSULE PO SCH ×2 (09:23→21:31)
[2016-10-19 09:24] LABS: APPEARANCE,URINE CLOUDY (CLEAR); GLUCOSE, URINE (UA) NEGATIVE (NEGATIVE); KETONES,URINE NEGATIVE (NEGATIVE); LEUKOCYTE ESTERASE ,URINE TRACE (NEGATIVE); OCCULT BLOOD,URINE TRACE (NEGATIVE); PH,URINE 7.5 (5.0-8.0); PROTEIN,URINE NEGATIVE (NEGATIVE)
[2016-10-19] MEDS: DIAZEPAM 5 MG TABLET GT SCH ×3 (09:24→21:31)
[2016-10-19 09:25] LABS: ADD UA MICROSCOPIC YES
[2016-10-19] MEDS: TRIHEXYPHENIDYL HCL 2 MG TABLET GT SCH ×3 (09:25→21:30)
[2016-10-19] MEDS: ASCORBIC ACID 500 MG TABLET GT SCH (09:25)
[2016-10-19] MEDS: PHENOBARBITAL 30 MG/7.5 ML PEG SCH (09:25)
[2016-10-19] MEDS: GLYCOPYRROLATE 1 MG TABLET GT SCH ×3 (09:26→21:31)
[2016-10-19] MEDS: POLYETHYLENE GLYCOL 3350 17 GM PACKET GT SCH (09:26)
[2016-10-19 09:28] LABS: RBC,URINE 0-2 /HPF (0-2); WBC,URINE 0-2 /HPF (0-5)
[2016-10-19] MEDS: TiZANidine HCL 4 MG TABLET GT SCH ×3 (09:28→21:31)
[2016-10-19 09:29] LABS: RENAL EPITHELIAL CELLS,URINE Few /LPF (None Seen); SQUAMOUS EPITHELIAL CELL,UR Few /LPF (None Seen)
[2016-10-19] MEDS: CHOLECALCIFEROL (VIT D3) 1,000 UNITS TABLET PO SCH (09:29)
[2016-10-19 09:39] LABS: ALANINE AMINOTRANSFERASE 212 U/L (12-78); ALBUMIN 3.3 g/dL (3.4-5.0); ANION GAP 8 mmol/L (8-16); ASPARTATE AMINOTRANSFERASE 155 U/L (15-37); BILIRUBIN,TOTAL 0.4 mg/dL (0.1-1.0); CALCIUM, TOTAL 8.8 mg/dL (8.8-10.5); CARBON DIOXIDE 27 mmol/L (22-29); CHLORIDE 106 mmol/L (98-107); CREATININE 0.87 mg/dL (0.60-1.30); GLOMERULAR FILTR. RATE CALC > 60 mL/min (>60); POTASSIUM 4.1 mmol/L (3.5-5.1); SODIUM SERUM 141 mmol/L (136-145); TOTAL PROTEIN, SERUM 7.4 g/dL (6.4-8.2); UREA NITROGEN, BLOOD 19 mg/dL (7-18)
[2016-10-19 10:03] LABS: ANION GAP 12 mmol/L (8-16); CALCIUM, TOTAL 9.1 mg/dL (8.8-10.5); CARBON DIOXIDE 25 mmol/L (22-29); CHLORIDE 103 mmol/L (98-107); CREATININE 0.92 mg/dL (0.60-1.30); GLOMERULAR FILTR. RATE CALC > 60 mL/min (>60); PHOSPHORUS 3.7 mg/dL (2.5-4.9); SODIUM SERUM 140 mmol/L (136-145); UREA NITROGEN, BLOOD 18 mg/dL (7-18)
[2016-10-19] MEDS ORDERED: PHENYTOIN SODIUM 1,000 MG in SODIUM CHLORIDE 0.9% 150 ML IV ONE (10:30)
[2016-10-19] MEDS: OxyCODONE HCL/ACETAMINOPHEN 5-325 MG TABLET PO PRN ×2 (17:12→23:59)
[2016-10-19] MEDS ORDERED: SODIUM CHLORIDE 0.9% 250 ML IV ONE (19:25)
[2016-10-20] VITALS (12 sets, daily range): BP systolic 128–179; BP diastolic 64–122
[2016-10-20] MEDS: LevETIRAcetam 500 MG in DEXTROSE 5%-WATER 100 ML IV SCH ×2 (03:56→15:33)
[2016-10-20] MEDS: LORazepam 2 MG/ML VIAL IVP PRN ×4 (04:23→20:36)
[2016-10-20] MEDS: OxyCODONE HCL/ACETAMINOPHEN 5-325 MG TABLET PO PRN ×2 (04:23→23:12)
[2016-10-20 04:49] LABS: BASOPHILS # (AUTO) 0.03 K/uL (0.00-0.20); BASOPHILS % (AUTO) 0.5 % (0.0-2.0); EOSINOPHILS # (AUTO) 0.16 K/uL (0.00-0.70); EOSINOPHILS % (AUTO) 2.82 % (1.0-6.0); HEMATOCRIT 41.1 % (41-53); HEMOGLOBIN 13.5 g/dL (13.5-17.5); LYMPHOCYTES # (AUTO) 1.2 K/uL (1.0-4.8); LYMPHOCYTES % (AUTO) 20.3 % (22.0-44.0); MEAN CORPUSCULAR HEMOGLOBIN 30.1 pg (26.0-34.0); MEAN CORPUSCULAR HGB CONC 32.9 G/dL (31.0-37.0); MEAN CORPUSCULAR VOLUME 92 fL (80-100); MONOCYTES # (AUTO) 0.5 K/uL (0.1-1.0); MONOCYTES % (AUTO) 8.1 % (2.0-9.0); NEUTROPHILS # (AUTO) 3.9 K/uL (1.8-7.7); NEUTROPHILS % (AUTO) 68.3 % (40.0-70.0); PLATELET COUNT (AUTO) 182 K/uL (150-450); RED BLOOD CELL COUNT(AUTO) 4.48 MIL/uL (4.50-5.90); RED CELL DISTRIBUTION WIDTH 13.7 % (11.5-14.5); WHITE BLOOD COUNT (AUTO) 5.7 K/uL (4.5-11.0)
[2016-10-20 05:06] LABS: ALANINE AMINOTRANSFERASE 176 U/L (12-78); ALBUMIN 3.5 g/dL (3.4-5.0); ANION GAP 11 mmol/L (8-16); ASPARTATE AMINOTRANSFERASE 90 U/L (15-37); BILIRUBIN,TOTAL 0.6 mg/dL (0.1-1.0); CALCIUM, TOTAL 8.8 mg/dL (8.8-10.5); CARBON DIOXIDE 25 mmol/L (22-29); CHLORIDE 103 mmol/L (98-107); CREATININE 0.92 mg/dL (0.60-1.30); GLOMERULAR FILTR. RATE CALC > 60 mL/min (>60); POTASSIUM 3.9 mmol/L (3.5-5.1); SODIUM SERUM 139 mmol/L (136-145); TOTAL PROTEIN, SERUM 7.7 g/dL (6.4-8.2); UREA NITROGEN, BLOOD 19 mg/dL (7-18)
[2016-10-20] MEDS: HEPARIN SODIUM,PORCINE 5,000 UNITS/ML VIAL SQ SCH ×3 (08:01→23:12)
[2016-10-20] MEDS: PANTOPRAZOLE SODIUM 40 MG/VIAL IVP SCH (08:02)
[2016-10-20] MEDS: POLYETHYLENE GLYCOL 3350 17 GM PACKET GT SCH (08:02)
[2016-10-20] MEDS: METOCLOPRAMIDE HCL 5 MG/ML 2 ML VIAL IVP SCH ×3 (08:02→23:12)
[2016-10-20] MEDS: CHOLECALCIFEROL (VIT D3) 1,000 UNITS TABLET PO SCH (08:03)
[2016-10-20] MEDS: TiZANidine HCL 4 MG TABLET GT SCH ×3 (08:03→20:36)
[2016-10-20] MEDS: TRIHEXYPHENIDYL HCL 2 MG TABLET GT SCH ×3 (08:03→20:36)
[2016-10-20] MEDS: GLYCOPYRROLATE 1 MG TABLET GT SCH ×3 (08:04→20:36)
[2016-10-20] MEDS: ASCORBIC ACID 500 MG TABLET GT SCH (08:04)
[2016-10-20] MEDS: DOCUSATE SODIUM 100 MG CAPSULE PO SCH ×2 (08:05→20:36)
[2016-10-20] MEDS: DIAZEPAM 5 MG TABLET GT SCH ×3 (08:05→20:36)
[2016-10-20] MEDS: LEVOFLOXACIN 750 MG/D5% WATER 150 ML IV SCH (08:09)
[2016-10-20] MEDS: PHENYTOIN SODIUM 300 MG in SODIUM CHLORIDE 0.9% 100 ML IV SCH (08:19)
[2016-10-20] MEDS: PHENOBARBITAL 30 MG/7.5 ML PEG SCH (08:29)
[2016-10-20] MEDS: ACETAMINOPHEN 325 MG TABLET PO PRN ×2 (11:35→20:37)
[2016-10-20 14:38] LABS: ABG A-A DIFF O2 173.1 mmHg (10-20.0); ABG HCO3 22.5 mmol/L (22.0-26.0); ABG PCO2 46 mmHg (35-45); ABG PH 7.337 (7.350-7.450); TEMPERATURE, FAHRENHEIT, BG 98.8 FAHREN (96.0-98.6)
[2016-10-20 14:41] LABS: ALLEN TEST, BLOOD GAS Positive
[2016-10-20] MEDS ORDERED: SODIUM CHLORIDE 0.9% 250 ML IV ONE (19:43)
[2016-10-21] VITALS (8 sets, daily range): BP systolic 94–183; BP diastolic 35–123
[2016-10-21] MEDS: LORazepam 2 MG/ML VIAL IVP PRN ×3 (00:54→14:07)
[2016-10-21] MEDS: ACETAMINOPHEN 325 MG TABLET PO PRN (01:45)
[2016-10-21] MEDS: LevETIRAcetam 500 MG in DEXTROSE 5%-WATER 100 ML IV SCH ×2 (03:02→15:23)
[2016-10-21] MEDS: OxyCODONE HCL/ACETAMINOPHEN 5-325 MG TABLET PO PRN (05:10)
[2016-10-21 05:18] LABS: BASOPHILS # (AUTO) 0.02 K/uL (0.00-0.20); BASOPHILS % (AUTO) 0.3 % (0.0-2.0); EOSINOPHILS # (AUTO) 0.14 K/uL (0.00-0.70); EOSINOPHILS % (AUTO) 2.68 % (1.0-6.0); HEMATOCRIT 41.6 % (41-53); HEMOGLOBIN 13.8 g/dL (13.5-17.5); LYMPHOCYTES % (AUTO) 18.4 % (22.0-44.0); MEAN CORPUSCULAR HEMOGLOBIN 30.6 pg (26.0-34.0); MEAN CORPUSCULAR HGB CONC 33.1 G/dL (31.0-37.0); MEAN CORPUSCULAR VOLUME 92 fL (80-100); MONOCYTES # (AUTO) 0.4 K/uL (0.1-1.0); MONOCYTES % (AUTO) 8.1 % (2.0-9.0); NEUTROPHILS # (AUTO) 3.8 K/uL (1.8-7.7); NEUTROPHILS % (AUTO) 70.5 % (40.0-70.0); PLATELET COUNT (AUTO) 187 K/uL (150-450); RED BLOOD CELL COUNT(AUTO) 4.51 MIL/uL (4.50-5.90); RED CELL DISTRIBUTION WIDTH 13.3 % (11.5-14.5); WHITE BLOOD COUNT (AUTO) 5.4 K/uL (4.5-11.0)
[2016-10-21 05:32] LABS: ALANINE AMINOTRANSFERASE 141 U/L (12-78); ANION GAP 13 mmol/L (8-16); ASPARTATE AMINOTRANSFERASE 52 U/L (15-37); BILIRUBIN,TOTAL 0.4 mg/dL (0.1-1.0); CALCIUM, TOTAL 9.1 mg/dL (8.8-10.5); CARBON DIOXIDE 26 mmol/L (22-29); CHLORIDE 103 mmol/L (98-107); CREATININE 0.96 mg/dL (0.60-1.30); GLOMERULAR FILTR. RATE CALC > 60 mL/min (>60); PHENOBARBITAL 23 mcg/mL (15-40); POTASSIUM 3.8 mmol/L (3.5-5.1); SODIUM SERUM 142 mmol/L (136-145); TOTAL PROTEIN, SERUM 8.2 g/dL (6.4-8.2); UREA NITROGEN, BLOOD 19 mg/dL (7-18)
[2016-10-21] MEDS ORDERED: DEXTROSE 50%-WATER 25 GM/50 ML SYRINGE IVP PRN (07:00)
[2016-10-21 07:37] LABS: GLUCOSE COMMENT 1 Received Meds; GLUCOSE,POINT OF CARE 68 MG/DL (70-110)
[2016-10-21] MEDS: LEVOFLOXACIN 750 MG/D5% WATER 150 ML IV SCH (08:01)
[2016-10-21] MEDS: DIAZEPAM 5 MG TABLET GT SCH ×4 (08:02→21:45)
[2016-10-21] MEDS: METOCLOPRAMIDE HCL 5 MG/ML 2 ML VIAL IVP SCH ×2 (08:02→15:19)
[2016-10-21] MEDS: HEPARIN SODIUM,PORCINE 5,000 UNITS/ML VIAL SQ SCH ×2 (08:02→15:20)
[2016-10-21] MEDS: GLYCOPYRROLATE 1 MG TABLET GT SCH ×3 (08:03→21:43)
[2016-10-21] MEDS: ASCORBIC ACID 500 MG TABLET GT SCH (08:03)
[2016-10-21] MEDS: TiZANidine HCL 4 MG TABLET GT SCH ×3 (08:04→21:44)
[2016-10-21] MEDS: TRIHEXYPHENIDYL HCL 2 MG TABLET GT SCH ×3 (08:04→21:44)
[2016-10-21] MEDS: CHOLECALCIFEROL (VIT D3) 1,000 UNITS TABLET PO SCH (08:05)
[2016-10-21] MEDS: PHENOBARBITAL 30 MG/7.5 ML PEG SCH (08:05)
[2016-10-21] MEDS: PANTOPRAZOLE SODIUM 40 MG/VIAL IVP SCH (08:06)
[2016-10-21] MEDS: DOCUSATE SODIUM 100 MG CAPSULE PO SCH ×2 (08:06→21:44)
[2016-10-21] MEDS: POLYETHYLENE GLYCOL 3350 17 GM PACKET GT SCH (08:06)
[2016-10-21] MEDS: PHENYTOIN SODIUM 300 MG in SODIUM CHLORIDE 0.9% 100 ML IV SCH (08:11)
[2016-10-21] MEDS: BACLOFEN 10 MG TABLET PO SCH ×2 (08:35→21:44)
[2016-10-21 10:03] LABS: ABG A-A DIFF O2 120.8 mmHg (10-20.0); ABG HCO3 25.2 mmol/L (22.0-26.0); ABG OXYHEMOGLOBIN 97.8 % (94.0-100.0); ABG PCO2 44 mmHg (35-45); ABG PH 7.387 (7.350-7.450); ALLEN TEST, BLOOD GAS POS; TEMPERATURE, FAHRENHEIT, BG 98.8 FAHREN (96.0-98.6)
[2016-10-21] MEDS: DEXTROSE 5%-0.45% SODIUM CHL 1,000 ML IV SCH (11:00)
[2016-10-21 12:38] LABS: GLUCOSE,POINT OF CARE 70 MG/DL (70-110)
[2016-10-22] VITALS: BP 124/67
[2016-10-22] MEDS: HEPARIN SODIUM,PORCINE 5,000 UNITS/ML VIAL SQ SCH ×4 (01:01→23:19)
[2016-10-22] MEDS: METOCLOPRAMIDE HCL 5 MG/ML 2 ML VIAL IVP SCH ×4 (01:02→23:19)
[2016-10-22] MEDS: DEXTROSE 5%-0.45% SODIUM CHL 1,000 ML IV SCH ×2 (02:10→18:05)
[2016-10-22] MEDS: LORazepam 2 MG/ML VIAL IVP PRN ×4 (03:11→23:19)
[2016-10-22] MEDS: LevETIRAcetam 500 MG in DEXTROSE 5%-WATER 100 ML IV SCH ×2 (03:13→16:06)
[2016-10-22 04:00] VITALS: BP 98/61
[2016-10-22] MEDS ORDERED: SODIUM CHLORIDE 0.9% 250 ML IV ONE (06:07)
[2016-10-22 08:00] VITALS: BP 132/76
[2016-10-22] MEDS: LEVOFLOXACIN 750 MG/D5% WATER 150 ML IV SCH (08:15)
[2016-10-22] MEDS: PHENYTOIN SODIUM 300 MG in SODIUM CHLORIDE 0.9% 100 ML IV SCH (09:19)
[2016-10-22] MEDS: PHENOBARBITAL 30 MG/7.5 ML PEG SCH (09:19)
[2016-10-22] MEDS: POLYETHYLENE GLYCOL 3350 17 GM PACKET GT SCH (09:20)
[2016-10-22] MEDS: TiZANidine HCL 4 MG TABLET GT SCH ×3 (09:21→20:45)
[2016-10-22] MEDS: BACLOFEN 10 MG TABLET PO SCH ×2 (09:22→20:44)
[2016-10-22] MEDS: DOCUSATE SODIUM 100 MG CAPSULE PO SCH ×2 (09:30→20:43)
[2016-10-22] MEDS: CHOLECALCIFEROL (VIT D3) 1,000 UNITS TABLET PO SCH (09:30)
[2016-10-22] MEDS: TRIHEXYPHENIDYL HCL 2 MG TABLET GT SCH ×3 (09:31→20:43)
[2016-10-22] MEDS: DIAZEPAM 5 MG TABLET GT SCH ×3 (09:32→20:44)
[2016-10-22] MEDS: GLYCOPYRROLATE 1 MG TABLET GT SCH ×3 (09:32→20:44)
[2016-10-22] MEDS: ASCORBIC ACID 500 MG TABLET GT SCH (09:33)
[2016-10-22] MEDS: PANTOPRAZOLE SODIUM 40 MG/VIAL IVP SCH (09:41)
[2016-10-22] MEDS: MIDAZOLAM HCL 100 MG in DEXTROSE 5%-WATER 180 ML IV PRN (11:13)
[2016-10-22 12:00] VITALS: BP 147/90
[2016-10-22 20:00] VITALS: BP 150/90
[2016-10-23] VITALS (8 sets, daily range): BP systolic 102–168; BP diastolic 69–117
[2016-10-23] MEDS: MIDAZOLAM HCL 100 MG in DEXTROSE 5%-WATER 180 ML IV PRN ×2 (00:04→13:05)
[2016-10-23] MEDS: LevETIRAcetam 500 MG in DEXTROSE 5%-WATER 100 ML IV SCH ×2 (04:13→17:03)
[2016-10-23] MEDS: LORazepam 2 MG/ML VIAL IM PRN (04:14)
[2016-10-23] MEDS ORDERED: LABETALOL HCL 5 MG/ML 20 ML VIAL IVP PRN (04:45)
[2016-10-23 05:25] LABS: ANION GAP 11 mmol/L (8-16); CALCIUM, TOTAL 8.8 mg/dL (8.8-10.5); CARBON DIOXIDE 28 mmol/L (22-29); CHLORIDE 101 mmol/L (98-107); CREATININE 0.76 mg/dL (0.60-1.30); GLOMERULAR FILTR. RATE CALC > 60 mL/min (>60); POTASSIUM 3.3 mmol/L (3.5-5.1); SODIUM SERUM 140 mmol/L (136-145); UREA NITROGEN, BLOOD 8 mg/dL (7-18)
[2016-10-23] MEDS: LEVOFLOXACIN 750 MG/D5% WATER 150 ML IV SCH (07:51)
[2016-10-23] MEDS: METOCLOPRAMIDE HCL 5 MG/ML 2 ML VIAL IVP SCH ×2 (07:52→17:01)
[2016-10-23] MEDS: OxyCODONE HCL/ACETAMINOPHEN 5-325 MG TABLET PO PRN ×2 (07:52→14:41)
[2016-10-23] MEDS: HEPARIN SODIUM,PORCINE 5,000 UNITS/ML VIAL SQ SCH ×2 (07:52→17:01)
[2016-10-23] MEDS: LORazepam 2 MG/ML VIAL IVP PRN ×4 (07:53→19:34)
[2016-10-23] MEDS: PANTOPRAZOLE SODIUM 40 MG/VIAL IVP SCH (08:00)
[2016-10-23] MEDS: POLYETHYLENE GLYCOL 3350 17 GM PACKET GT SCH (08:00)
[2016-10-23] MEDS: GLYCOPYRROLATE 1 MG TABLET GT SCH ×3 (08:00→21:46)
[2016-10-23] MEDS: CHOLECALCIFEROL (VIT D3) 1,000 UNITS TABLET PO SCH (08:00)
[2016-10-23] MEDS: DIAZEPAM 5 MG TABLET GT SCH ×3 (08:01→21:46)
[2016-10-23] MEDS: TRIHEXYPHENIDYL HCL 2 MG TABLET GT SCH ×3 (08:01→21:47)
[2016-10-23] MEDS: PHENOBARBITAL 30 MG/7.5 ML PEG SCH (08:01)
[2016-10-23] MEDS: BACLOFEN 10 MG TABLET PO SCH ×2 (08:01→21:47)
[2016-10-23] MEDS: TiZANidine HCL 4 MG TABLET GT SCH ×3 (08:01→21:47)
[2016-10-23] MEDS: PHENYTOIN SODIUM 300 MG in SODIUM CHLORIDE 0.9% 100 ML IV SCH (08:01)
[2016-10-23] MEDS: DOCUSATE SODIUM 100 MG CAPSULE PO SCH ×2 (08:02→21:46)
[2016-10-23] MEDS: CARVEDILOL 12.5 MG TABLET PO SCH ×2 (08:03→21:47)
[2016-10-23] MEDS: ASCORBIC ACID 500 MG TABLET GT SCH (08:08)
[2016-10-23] MEDS ORDERED: POTASSIUM CHLORIDE 10% 40 MEQ/30 ML LIQUID UDCUP PEG PRN (08:15)
[2016-10-23] MEDS ORDERED: POTASSIUM CHL 10 MEQ/WATER 50 ML IV PRN (08:15)
[2016-10-23] MEDS: POTASSIUM CHLORIDE 10% 40 MEQ/30 ML LIQUID UDCUP PEG PRN (08:23)
[2016-10-23] MEDS ORDERED: SODIUM CHLORIDE 0.9% 250 ML IV ONE (09:38)
[2016-10-23] MEDS: DEXTROSE 5%-0.45% SODIUM CHL 1,000 ML IV SCH (11:23)
[2016-10-23 12:55] LABS: INR 1.2 (0.9-1.1); PROTHROMBIN TIME 12.7 SEC (9.4-11.6)
[2016-10-23] MEDS: LORazepam 1 MG TABLET PO SCH (17:02)
[2016-10-23] MEDS ORDERED: SODIUM CHLORIDE 0.9% 100 ML ONE (19:08)
[2016-10-24] VITALS (8 sets, daily range): BP systolic 123–172; BP diastolic 65–106
[2016-10-24] MEDS: LORazepam 1 MG TABLET PO SCH ×4 (00:16→23:50)
[2016-10-24] MEDS: METOCLOPRAMIDE HCL 5 MG/ML 2 ML VIAL IVP SCH ×4 (00:16→23:50)
[2016-10-24] MEDS: HEPARIN SODIUM,PORCINE 5,000 UNITS/ML VIAL SQ SCH ×4 (00:17→23:51)
[2016-10-24] MEDS: MIDAZOLAM HCL 100 MG in DEXTROSE 5%-WATER 180 ML IV PRN (01:10)
[2016-10-24] MEDS: LORazepam 2 MG/ML VIAL IVP PRN ×3 (02:51→19:47)
[2016-10-24] MEDS: DEXTROSE 5%-0.45% SODIUM CHL 1,000 ML IV SCH ×2 (02:52→19:46)
[2016-10-24] MEDS: LevETIRAcetam 500 MG in DEXTROSE 5%-WATER 100 ML IV SCH ×2 (03:41→16:36)
[2016-10-24] MEDS ORDERED: SODIUM CHLORIDE 0.9% 250 ML IV ONE ×3 (03:49→19:46)
[2016-10-24 05:20] LABS: ANION GAP 8 mmol/L (8-16); CALCIUM, TOTAL 8.6 mg/dL (8.8-10.5); CARBON DIOXIDE 30 mmol/L (22-29); CHLORIDE 102 mmol/L (98-107); GLOMERULAR FILTR. RATE CALC > 60 mL/min (>60); POTASSIUM 3.7 mmol/L (3.5-5.1); SODIUM SERUM 140 mmol/L (136-145); UREA NITROGEN, BLOOD 6 mg/dL (7-18)
[2016-10-24] MEDS: LEVOFLOXACIN 750 MG/D5% WATER 150 ML IV SCH (08:55)
[2016-10-24] MEDS: PHENOBARBITAL 30 MG/7.5 ML PEG SCH (08:55)
[2016-10-24] MEDS: TiZANidine HCL 4 MG TABLET GT SCH ×3 (08:56→21:24)
[2016-10-24] MEDS: PANTOPRAZOLE SODIUM 40 MG/VIAL IVP SCH (08:56)
[2016-10-24] MEDS: CARVEDILOL 12.5 MG TABLET PO SCH ×2 (08:57→21:24)
[2016-10-24] MEDS: GLYCOPYRROLATE 1 MG TABLET GT SCH ×3 (08:57→21:23)
[2016-10-24] MEDS: DIAZEPAM 5 MG TABLET GT SCH ×3 (08:57→21:24)
[2016-10-24] MEDS: ASCORBIC ACID 500 MG TABLET GT SCH (08:58)
[2016-10-24] MEDS: TRIHEXYPHENIDYL HCL 2 MG TABLET GT SCH ×3 (08:58→21:23)
[2016-10-24] MEDS: DOCUSATE SODIUM 100 MG CAPSULE PO SCH ×2 (08:58→21:24)
[2016-10-24] MEDS: BACLOFEN 10 MG TABLET PO SCH ×2 (08:58→21:24)
[2016-10-24] MEDS: CHOLECALCIFEROL (VIT D3) 1,000 UNITS TABLET PO SCH (08:58)
[2016-10-24] MEDS: POLYETHYLENE GLYCOL 3350 17 GM PACKET GT SCH (09:00)
[2016-10-24] MEDS: PHENYTOIN SODIUM 300 MG in SODIUM CHLORIDE 0.9% 100 ML IV SCH (09:30)
[2016-10-24] MEDS: PROPOFOL 1000 MG/ISO-OSM 100 ML IV SCH ×3 (12:11→21:27)
[2016-10-24] MEDS: ACETAMINOPHEN 325 MG TABLET PO PRN ×2 (17:02→21:25)
[2016-10-25] VITALS (8 sets, daily range): BP systolic 124–166; BP diastolic 52–105
[2016-10-25] MEDS: PROPOFOL 1000 MG/ISO-OSM 100 ML IV SCH ×4 (02:49→19:58)
[2016-10-25] MEDS: LevETIRAcetam 500 MG in DEXTROSE 5%-WATER 100 ML IV SCH ×2 (03:05→16:35)
[2016-10-25 05:51] LABS: ANION GAP 6 mmol/L (8-16); CALCIUM, TOTAL 8.8 mg/dL (8.8-10.5); CARBON DIOXIDE 31 mmol/L (22-29); CHLORIDE 105 mmol/L (98-107); CREATININE 0.59 mg/dL (0.60-1.30); GLOMERULAR FILTR. RATE CALC > 60 mL/min (>60); SODIUM SERUM 142 mmol/L (136-145); UREA NITROGEN, BLOOD 6 mg/dL (7-18)
[2016-10-25 06:00] LABS: BASOPHILS # (AUTO) 0.01 K/uL (0.00-0.20); BASOPHILS % (AUTO) 0.2 % (0.0-2.0); EOSINOPHILS # (AUTO) 0.16 K/uL (0.00-0.70); EOSINOPHILS % (AUTO) 2.69 % (1.0-6.0); HEMATOCRIT 40.3 % (41-53); HEMOGLOBIN 13.2 g/dL (13.5-17.5); LYMPHOCYTES # (AUTO) 0.9 K/uL (1.0-4.8); MEAN CORPUSCULAR HEMOGLOBIN 30.6 pg (26.0-34.0); MEAN CORPUSCULAR HGB CONC 32.8 G/dL (31.0-37.0); MEAN CORPUSCULAR VOLUME 93 fL (80-100); MONOCYTES # (AUTO) 0.3 K/uL (0.1-1.0); MONOCYTES % (AUTO) 5.9 % (2.0-9.0); NEUTROPHILS # (AUTO) 4.4 K/uL (1.8-7.7); NEUTROPHILS % (AUTO) 76.3 % (40.0-70.0); PLATELET COUNT (AUTO) 223 K/uL (150-450); RED BLOOD CELL COUNT(AUTO) 4.33 MIL/uL (4.50-5.90); RED CELL DISTRIBUTION WIDTH 13.2 % (11.5-14.5); WHITE BLOOD COUNT (AUTO) 5.8 K/uL (4.5-11.0)
[2016-10-25] MEDS: ASCORBIC ACID 500 MG TABLET GT SCH (08:10)
[2016-10-25] MEDS: METOCLOPRAMIDE HCL 5 MG/ML 2 ML VIAL IVP SCH ×2 (08:10→16:33)
[2016-10-25] MEDS: CHOLECALCIFEROL (VIT D3) 1,000 UNITS TABLET PO SCH (08:10)
[2016-10-25] MEDS: DOCUSATE SODIUM 100 MG CAPSULE PO SCH ×2 (08:10→21:13)
[2016-10-25] MEDS: DIAZEPAM 5 MG TABLET GT SCH ×3 (08:10→21:13)
[2016-10-25] MEDS: LORazepam 1 MG TABLET PO SCH ×2 (08:11→16:33)
[2016-10-25] MEDS: CARVEDILOL 12.5 MG TABLET PO SCH ×2 (08:11→21:13)
[2016-10-25] MEDS: HEPARIN SODIUM,PORCINE 5,000 UNITS/ML VIAL SQ SCH ×2 (08:11→16:33)
[2016-10-25] MEDS: PANTOPRAZOLE SODIUM 40 MG/VIAL IVP SCH (08:12)
[2016-10-25] MEDS: TiZANidine HCL 4 MG TABLET GT SCH ×3 (08:12→21:13)
[2016-10-25] MEDS: PHENOBARBITAL 30 MG/7.5 ML PEG SCH (08:13)
[2016-10-25] MEDS: BACLOFEN 10 MG TABLET PO SCH ×2 (08:14→21:13)
[2016-10-25] MEDS: GLYCOPYRROLATE 1 MG TABLET GT SCH ×3 (08:15→21:12)
[2016-10-25] MEDS: TRIHEXYPHENIDYL HCL 2 MG TABLET GT SCH ×3 (08:15→21:12)
[2016-10-25] MEDS: POLYETHYLENE GLYCOL 3350 17 GM PACKET GT SCH (08:16)
[2016-10-25] MEDS: LEVOFLOXACIN 750 MG/D5% WATER 150 ML IV SCH (08:18)
[2016-10-25] MEDS: PHENYTOIN SODIUM 300 MG in SODIUM CHLORIDE 0.9% 100 ML IV SCH (08:18)
[2016-10-25] MEDS: DEXTROSE 5%-0.45% SODIUM CHL 1,000 ML IV SCH (12:42)
[2016-10-25] MEDS: ACETAMINOPHEN 325 MG TABLET PO PRN ×2 (13:44→21:14)
[2016-10-25] MEDS ORDERED: SODIUM CHLORIDE 0.9% 250 ML IV ONE (20:43)
[2016-10-26] VITALS (10 sets, daily range): BP systolic 129–173; BP diastolic 67–134
[2016-10-26] MEDS: LORazepam 1 MG TABLET PO SCH ×4 (00:49→23:22)
[2016-10-26] MEDS: METOCLOPRAMIDE HCL 5 MG/ML 2 ML VIAL IVP SCH ×4 (00:49→23:22)
[2016-10-26] MEDS: HEPARIN SODIUM,PORCINE 5,000 UNITS/ML VIAL SQ SCH ×4 (00:50→23:22)
[2016-10-26] MEDS: OxyCODONE HCL/ACETAMINOPHEN 5-325 MG TABLET PO PRN (00:50)
[2016-10-26] MEDS: ACETAMINOPHEN 325 MG TABLET PO PRN (01:53)
[2016-10-26] MEDS: PROPOFOL 1000 MG/ISO-OSM 100 ML IV SCH ×5 (02:04→18:39)
[2016-10-26] MEDS: LevETIRAcetam 500 MG in DEXTROSE 5%-WATER 100 ML IV SCH ×2 (03:56→15:43)
[2016-10-26] MEDS: DEXTROSE 5%-0.45% SODIUM CHL 1,000 ML IV SCH ×2 (04:11→20:32)
[2016-10-26] MEDS: PHENYTOIN SODIUM 300 MG in SODIUM CHLORIDE 0.9% 100 ML IV SCH (08:54)
[2016-10-26] MEDS: LEVOFLOXACIN 750 MG/D5% WATER 150 ML IV SCH (08:54)
[2016-10-26] MEDS: POLYETHYLENE GLYCOL 3350 17 GM PACKET GT SCH (08:56)
[2016-10-26] MEDS: PANTOPRAZOLE SODIUM 40 MG/VIAL IVP SCH (08:56)
[2016-10-26] MEDS: CHOLECALCIFEROL (VIT D3) 1,000 UNITS TABLET PO SCH (08:57)
[2016-10-26] MEDS: TiZANidine HCL 4 MG TABLET GT SCH ×3 (08:57→20:31)
[2016-10-26] MEDS: DIAZEPAM 5 MG TABLET GT SCH ×3 (08:57→20:30)
[2016-10-26] MEDS: DOCUSATE SODIUM 100 MG CAPSULE PO SCH ×2 (08:57→20:31)
[2016-10-26] MEDS: BACLOFEN 10 MG TABLET PO SCH ×2 (08:58→20:31)
[2016-10-26] MEDS: GLYCOPYRROLATE 1 MG TABLET GT SCH ×3 (08:58→20:30)
[2016-10-26] MEDS: TRIHEXYPHENIDYL HCL 2 MG TABLET GT SCH ×3 (08:58→20:30)
[2016-10-26] MEDS: PHENOBARBITAL 30 MG/7.5 ML PEG SCH (08:59)
[2016-10-26] MEDS: CARVEDILOL 12.5 MG TABLET PO SCH ×2 (08:59→20:31)
[2016-10-26] MEDS: ASCORBIC ACID 500 MG TABLET GT SCH (08:59)
[2016-10-26 14:02] LABS: ABG A-A DIFF O2 109.9 mmHg (10-20.0); ABG BASE EXCESS 4.6 mmol/L (-2.0-3.0); ABG HCO3 28.6 mmol/L (22.0-26.0); ABG OXYHEMOGLOBIN 98.7 % (94.0-100.0); ABG PCO2 37 mmHg (35-45); ABG PH 7.493 (7.350-7.450); ALLEN TEST, BLOOD GAS Positive; TEMPERATURE, FAHRENHEIT, BG 98.6 FAHREN (96.0-98.6)
[2016-10-26] MEDS: LORazepam 2 MG/ML VIAL IVP PRN (20:59)
[2016-10-26] MEDS ORDERED: SODIUM CHLORIDE 0.9% 250 ML IV ONE (23:19)
[2016-10-27] VITALS (8 sets, daily range): BP systolic 122–158; BP diastolic 57–106
[2016-10-27] MEDS: LORazepam 2 MG/ML VIAL IVP PRN ×5 (03:16→13:16)
[2016-10-27] MEDS: LevETIRAcetam 500 MG in DEXTROSE 5%-WATER 100 ML IV SCH ×2 (04:56→15:47)
[2016-10-27] MEDS: PROPOFOL 1000 MG/ISO-OSM 100 ML IV SCH (06:05)
[2016-10-27] MEDS: METOCLOPRAMIDE HCL 5 MG/ML 2 ML VIAL IVP SCH ×2 (07:54→15:46)
[2016-10-27] MEDS: LEVOFLOXACIN 750 MG/D5% WATER 150 ML IV SCH (07:54)
[2016-10-27] MEDS: LORazepam 1 MG TABLET PO SCH ×2 (07:55→15:46)
[2016-10-27] MEDS: HEPARIN SODIUM,PORCINE 5,000 UNITS/ML VIAL SQ SCH ×2 (07:55→15:46)
[2016-10-27] MEDS: TRIHEXYPHENIDYL HCL 2 MG TABLET GT SCH ×3 (08:30→21:37)
[2016-10-27] MEDS: DIAZEPAM 5 MG TABLET GT SCH ×3 (08:31→21:37)
[2016-10-27] MEDS: POLYETHYLENE GLYCOL 3350 17 GM PACKET GT SCH (08:31)
[2016-10-27] MEDS: GLYCOPYRROLATE 1 MG TABLET GT SCH ×3 (08:31→21:37)
[2016-10-27] MEDS: ASCORBIC ACID 500 MG TABLET GT SCH (08:31)
[2016-10-27] MEDS: PANTOPRAZOLE SODIUM 40 MG/VIAL IVP SCH (08:32)
[2016-10-27] MEDS: TiZANidine HCL 4 MG TABLET GT SCH ×3 (08:32→21:38)
[2016-10-27] MEDS: PHENYTOIN SODIUM 300 MG in SODIUM CHLORIDE 0.9% 100 ML IV SCH (08:33)
[2016-10-27] MEDS: PHENOBARBITAL 30 MG/7.5 ML PEG SCH (08:33)
[2016-10-27] MEDS: DOCUSATE SODIUM 100 MG CAPSULE PO SCH ×2 (08:34→21:38)
[2016-10-27] MEDS: BACLOFEN 10 MG TABLET PO SCH ×2 (08:38→21:38)
[2016-10-27] MEDS: CHOLECALCIFEROL (VIT D3) 1,000 UNITS TABLET PO SCH (08:38)
[2016-10-27] MEDS: CARVEDILOL 12.5 MG TABLET PO SCH ×2 (08:38→21:38)
[2016-10-27 09:09] LABS: BASOPHILS # (AUTO) 0.01 K/uL (0.00-0.20); BASOPHILS % (AUTO) 0.3 % (0.0-2.0); EOSINOPHILS # (AUTO) 0.12 K/uL (0.00-0.70); EOSINOPHILS % (AUTO) 2.17 % (1.0-6.0); HEMATOCRIT 34.2 % (41-53); HEMOGLOBIN 11.7 g/dL (13.5-17.5); LYMPHOCYTES # (AUTO) 0.7 K/uL (1.0-4.8); MEAN CORPUSCULAR HEMOGLOBIN 30.6 pg (26.0-34.0); MEAN CORPUSCULAR HGB CONC 34.2 G/dL (31.0-37.0); MEAN CORPUSCULAR VOLUME 90 fL (80-100); MONOCYTES # (AUTO) 0.3 K/uL (0.1-1.0); MONOCYTES % (AUTO) 5.5 % (2.0-9.0); NEUTROPHILS # (AUTO) 4.5 K/uL (1.8-7.7); NEUTROPHILS % (AUTO) 79.1 % (40.0-70.0); PLATELET COUNT (AUTO) 265 K/uL (150-450); RED BLOOD CELL COUNT(AUTO) 3.81 MIL/uL (4.50-5.90); RED CELL DISTRIBUTION WIDTH 13.5 % (11.5-14.5); WHITE BLOOD COUNT (AUTO) 5.7 K/uL (4.5-11.0)
[2016-10-27 09:26] LABS: ANION GAP 9 mmol/L (8-16); CALCIUM, TOTAL 8.3 mg/dL (8.8-10.5); CARBON DIOXIDE 28 mmol/L (22-29); CHLORIDE 105 mmol/L (98-107); CREATININE 0.57 mg/dL (0.60-1.30); GLOMERULAR FILTR. RATE CALC > 60 mL/min (>60); SODIUM SERUM 142 mmol/L (136-145); UREA NITROGEN, BLOOD 5 mg/dL (7-18)
[2016-10-27] MEDS: POTASSIUM CHLORIDE 10% 40 MEQ/30 ML LIQUID UDCUP PEG PRN (10:53)
[2016-10-27] MEDS: DEXTROSE 5%-0.45% SODIUM CHL 1,000 ML IV SCH (13:08)
[2016-10-27 14:22] LABS: ABG A-A DIFF O2 140.3 mmHg (10-20.0); ABG HCO3 22.2 mmol/L (22.0-26.0); ABG OXYHEMOGLOBIN 97.2 % (94.0-100.0); ABG PCO2 41 mmHg (35-45); ABG PH 7.361 (7.350-7.450); ALLEN TEST, BLOOD GAS Positive; TEMPERATURE, FAHRENHEIT, BG 98.6 FAHREN (96.0-98.6)
[2016-10-27] MEDS: LORazepam 2 MG/ML VIAL IM PRN (17:40)
[2016-10-28] VITALS: BP 111/56
[2016-10-28] MEDS: LORazepam 1 MG TABLET PO SCH ×3 (00:04→15:34)
[2016-10-28] MEDS: HEPARIN SODIUM,PORCINE 5,000 UNITS/ML VIAL SQ SCH ×3 (00:05→15:34)
[2016-10-28] MEDS: METOCLOPRAMIDE HCL 5 MG/ML 2 ML VIAL IVP SCH ×3 (00:05→15:34)
[2016-10-28] MEDS ORDERED: SODIUM CHLORIDE 0.9% 250 ML IV ONE ×2 (00:07→20:55)
[2016-10-28] MEDS: LORazepam 2 MG/ML VIAL IVP PRN ×2 (01:31→04:41)
[2016-10-28 04:00] VITALS: BP 128/54
[2016-10-28] MEDS: LevETIRAcetam 500 MG in DEXTROSE 5%-WATER 100 ML IV SCH ×2 (04:05→15:33)
[2016-10-28 05:54] LABS: ANION GAP 8 mmol/L (8-16); CALCIUM, TOTAL 8.1 mg/dL (8.8-10.5); CARBON DIOXIDE 29 mmol/L (22-29); CHLORIDE 104 mmol/L (98-107); CREATININE 0.55 mg/dL (0.60-1.30); GLOMERULAR FILTR. RATE CALC > 60 mL/min (>60); POTASSIUM 3.3 mmol/L (3.5-5.1); SODIUM SERUM 141 mmol/L (136-145); UREA NITROGEN, BLOOD 7 mg/dL (7-18)
[2016-10-28] MEDS: DEXTROSE 5%-0.45% SODIUM CHL 1,000 ML IV SCH (06:06)
[2016-10-28] MEDS: LEVOFLOXACIN 750 MG/D5% WATER 150 ML IV SCH (07:46)
[2016-10-28] MEDS: GLYCOPYRROLATE 1 MG TABLET GT SCH ×3 (07:48→21:00)
[2016-10-28] MEDS: TRIHEXYPHENIDYL HCL 2 MG TABLET GT SCH ×3 (07:48→21:01)
[2016-10-28] MEDS: POLYETHYLENE GLYCOL 3350 17 GM PACKET GT SCH (07:48)
[2016-10-28] MEDS: CHOLECALCIFEROL (VIT D3) 1,000 UNITS TABLET PO SCH (07:49)
[2016-10-28] MEDS: DIAZEPAM 5 MG TABLET GT SCH ×3 (07:49→21:01)
[2016-10-28] MEDS: DOCUSATE SODIUM 100 MG CAPSULE PO SCH ×2 (07:49→21:00)
[2016-10-28] MEDS: BACLOFEN 10 MG TABLET PO SCH ×2 (07:49→21:00)
[2016-10-28] MEDS: ASCORBIC ACID 500 MG TABLET GT SCH (07:49)
[2016-10-28] MEDS: CARVEDILOL 12.5 MG TABLET PO SCH ×2 (07:49→21:00)
[2016-10-28] MEDS: POTASSIUM CHLORIDE 10% 40 MEQ/30 ML LIQUID UDCUP PEG PRN (07:50)
[2016-10-28] MEDS: TiZANidine HCL 4 MG TABLET GT SCH ×3 (07:50→21:01)
[2016-10-28] MEDS: PANTOPRAZOLE SODIUM 40 MG/VIAL IVP SCH (07:50)
[2016-10-28] MEDS: PHENOBARBITAL 30 MG/7.5 ML PEG SCH (07:50)
[2016-10-28 08:00] VITALS: BP 130/60
[2016-10-28] MEDS: PHENYTOIN SODIUM 300 MG in SODIUM CHLORIDE 0.9% 100 ML IV SCH (09:13)
[2016-10-28 12:00] VITALS: BP 101/54
[2016-10-28 16:00] VITALS: BP 131/76
[2016-10-28] MEDS: LORazepam 2 MG/ML VIAL IM PRN ×2 (17:29→21:10)
[2016-10-28 23:26] VITALS: BP 121/82
[2016-10-29] VITALS (7 sets, daily range): BP systolic 109–157; BP diastolic 65–94
[2016-10-29] MEDS: LORazepam 1 MG TABLET PO SCH ×4 (00:15→23:25)
[2016-10-29] MEDS: METOCLOPRAMIDE HCL 5 MG/ML 2 ML VIAL IVP SCH ×4 (00:15→23:26)
[2016-10-29] MEDS: HEPARIN SODIUM,PORCINE 5,000 UNITS/ML VIAL SQ SCH ×4 (00:15→23:26)
[2016-10-29] MEDS: DEXTROSE 5%-0.45% SODIUM CHL 1,000 ML IV SCH (00:16)
[2016-10-29] MEDS: ACETAMINOPHEN 325 MG TABLET PO PRN (02:12)
[2016-10-29] MEDS ORDERED: IBUPROFEN 400 MG TABLET PO ONE (04:00)
[2016-10-29] MEDS: LevETIRAcetam 500 MG in DEXTROSE 5%-WATER 100 ML IV SCH ×2 (04:00→16:07)
[2016-10-29] MEDS: LEVOFLOXACIN 750 MG/D5% WATER 150 ML IV SCH (07:57)
[2016-10-29 08:03] LABS: APPEARANCE,URINE CLOUDY (CLEAR); GLUCOSE, URINE (UA) NEGATIVE (NEGATIVE); KETONES,URINE NEGATIVE (NEGATIVE); LEUKOCYTE ESTERASE ,URINE LARGE (NEGATIVE); OCCULT BLOOD,URINE NEGATIVE (NEGATIVE); PROTEIN,URINE TRACE (NEGATIVE)
[2016-10-29 08:23] LABS: RBC,URINE 0-2 /HPF (0-2); SQUAMOUS EPITHELIAL CELL,UR Many /LPF (None Seen); WBC,URINE >100 /HPF (0-5)
[2016-10-29] MEDS: PHENOBARBITAL 30 MG/7.5 ML PEG SCH ×3 (08:27→20:37)
[2016-10-29] MEDS: CARVEDILOL 12.5 MG TABLET PO SCH ×2 (08:27→20:35)
[2016-10-29] MEDS: DOCUSATE SODIUM 100 MG CAPSULE PO SCH ×2 (08:27→20:37)
[2016-10-29] MEDS: CHOLECALCIFEROL (VIT D3) 1,000 UNITS TABLET PO SCH (08:27)
[2016-10-29] MEDS: PANTOPRAZOLE SODIUM 40 MG/VIAL IVP SCH (08:27)
[2016-10-29] MEDS: GLYCOPYRROLATE 1 MG TABLET GT SCH ×3 (08:28→20:35)
[2016-10-29] MEDS: DIAZEPAM 5 MG TABLET GT SCH ×3 (08:28→20:35)
[2016-10-29] MEDS: TRIHEXYPHENIDYL HCL 2 MG TABLET GT SCH ×3 (08:28→20:35)
[2016-10-29] MEDS: TiZANidine HCL 4 MG TABLET GT SCH ×3 (08:29→20:35)
[2016-10-29] MEDS: ASCORBIC ACID 500 MG TABLET GT SCH (08:29)
[2016-10-29] MEDS: POLYETHYLENE GLYCOL 3350 17 GM PACKET GT SCH (08:29)
[2016-10-29] MEDS: BACLOFEN 10 MG TABLET PO SCH ×2 (09:34→20:35)
[2016-10-29] MEDS ORDERED: DEXTROSE 50%-WATER 25 GM/50 ML SYRINGE IVP PRN (11:00)
[2016-10-29] MEDS: INSULIN REGULAR, HUMAN 100 UNITS/ML SQ PRN ×2 (12:04→18:42)
[2016-10-29] MEDS ORDERED: SODIUM CHLORIDE 0.9% 100 ML ONE ×2 (12:08→13:51)
[2016-10-29] MEDS: PHENYTOIN SODIUM 300 MG in SODIUM CHLORIDE 0.9% 100 ML IV SCH (12:10)
[2016-10-29] MEDS: LORazepam 2 MG/ML VIAL IVP PRN ×3 (14:14→22:20)
[2016-10-29] MEDS: MEROPENEM 1 GM in SODIUM CHLORIDE 0.9% 100 ML IV SCH ×2 (14:15→19:33)
[2016-10-29 15:14] LABS: GLUCOSE,POINT OF CARE 101 MG/DL (70-110)
[2016-10-29] MEDS ORDERED: LORazepam 2 MG/ML VIAL IVP ONE (16:00)
[2016-10-29] MEDS: OxyCODONE HCL/ACETAMINOPHEN 5-325 MG TABLET PO PRN (23:26)
[2016-10-30] MEDS: LORazepam 2 MG/ML VIAL IVP PRN (00:24)
[2016-10-30 04:10] VITALS: BP 128/71
[2016-10-30] MEDS: LevETIRAcetam 500 MG in DEXTROSE 5%-WATER 100 ML IV SCH ×2 (04:11→15:49)
[2016-10-30] MEDS: MEROPENEM 1 GM in SODIUM CHLORIDE 0.9% 100 ML IV SCH ×3 (04:43→20:35)
[2016-10-30] MEDS ORDERED: SODIUM CHLORIDE 0.9% 100 ML ONE (05:12)
[2016-10-30 07:18] VITALS: BP 143/70
[2016-10-30 07:35] LABS: BASOPHILS % (AUTO) 0.4 % (0.0-2.0); HEMATOCRIT 38.5 % (41-53); HEMOGLOBIN 12.6 g/dL (13.5-17.5); LYMPHOCYTES # (AUTO) 0.7 K/uL (1.0-4.8); LYMPHOCYTES % (AUTO) 10.9 % (22.0-44.0); MEAN CORPUSCULAR HEMOGLOBIN 29.9 pg (26.0-34.0); MEAN CORPUSCULAR HGB CONC 32.8 G/dL (31.0-37.0); MEAN CORPUSCULAR VOLUME 91 fL (80-100); MONOCYTES # (AUTO) 0.5 K/uL (0.1-1.0); MONOCYTES % (AUTO) 7.3 % (2.0-9.0); NEUTROPHILS % (AUTO) 79.4 % (40.0-70.0); PLATELET COUNT (AUTO) 285 K/uL (150-450); RED BLOOD CELL COUNT(AUTO) 4.22 MIL/uL (4.50-5.90); RED CELL DISTRIBUTION WIDTH 13.3 % (11.5-14.5); WHITE BLOOD COUNT (AUTO) 6.3 K/uL (4.5-11.0)
[2016-10-30 08:01] LABS: ANION GAP 8 mmol/L (8-16); CALCIUM, TOTAL 8.4 mg/dL (8.8-10.5); CARBON DIOXIDE 29 mmol/L (22-29); CHLORIDE 100 mmol/L (98-107); CREATININE 0.43 mg/dL (0.60-1.30); GLOMERULAR FILTR. RATE CALC > 60 mL/min (>60); POTASSIUM 3.6 mmol/L (3.5-5.1); SODIUM SERUM 137 mmol/L (136-145); UREA NITROGEN, BLOOD 9 mg/dL (7-18)
[2016-10-30] MEDS: METOCLOPRAMIDE HCL 5 MG/ML 2 ML VIAL IVP SCH ×2 (08:12→15:50)
[2016-10-30] MEDS: LORazepam 1 MG TABLET PO SCH ×2 (08:13→15:50)
[2016-10-30] MEDS: TiZANidine HCL 4 MG TABLET GT SCH ×3 (08:16→20:38)
[2016-10-30] MEDS: TRIHEXYPHENIDYL HCL 2 MG TABLET GT SCH ×3 (08:16→20:36)
[2016-10-30] MEDS: POLYETHYLENE GLYCOL 3350 17 GM PACKET GT SCH (08:17)
[2016-10-30] MEDS: GLYCOPYRROLATE 1 MG TABLET GT SCH ×3 (08:17→20:37)
[2016-10-30] MEDS: DIAZEPAM 5 MG TABLET GT SCH ×3 (08:17→20:36)
[2016-10-30] MEDS: PANTOPRAZOLE SODIUM 40 MG/VIAL IVP SCH (08:18)
[2016-10-30] MEDS: ASCORBIC ACID 500 MG TABLET GT SCH (08:18)
[2016-10-30] MEDS: PHENOBARBITAL 30 MG/7.5 ML PEG SCH ×3 (08:19→20:36)
[2016-10-30] MEDS: CHOLECALCIFEROL (VIT D3) 1,000 UNITS TABLET PO SCH (08:19)
[2016-10-30] MEDS: CARVEDILOL 12.5 MG TABLET PO SCH ×2 (08:19→20:37)
[2016-10-30] MEDS: BACLOFEN 10 MG TABLET PO SCH (08:19)
[2016-10-30] MEDS: DOCUSATE SODIUM 100 MG CAPSULE PO SCH ×2 (08:19→20:37)
[2016-10-30] MEDS: PHENYTOIN SODIUM 300 MG in SODIUM CHLORIDE 0.9% 100 ML IV SCH (08:56)
[2016-10-30 12:25] LABS: ABG A-A DIFF O2 36.5 mmHg (10-20.0); ABG BASE EXCESS 6.8 mmol/L (-2.0-3.0); ABG HCO3 29.4 mmol/L (22.0-26.0); ABG OXYHEMOGLOBIN 97.2 % (94.0-100.0); ABG PCO2 55 mmHg (35-45); ABG PH 7.384 (7.350-7.450); TEMPERATURE, FAHRENHEIT, BG 99.4 FAHREN (96.0-98.6)
[2016-10-30 12:50] VITALS: BP 136/78
[2016-10-30 15:37] VITALS: BP 148/90
[2016-10-30] MEDS: SIMETHICONE 80 MG CHEWABLE TABLET CHEW SCH ×2 (15:46→20:37)
[2016-10-30] MEDS: HEPARIN SODIUM,PORCINE 5,000 UNITS/ML VIAL SQ SCH (17:09)
[2016-10-30 19:30] VITALS: BP 147/98
[2016-10-30 20:57] LABS: GLUCOSE,POINT OF CARE 93 MG/DL (70-110)
[2016-10-30 20:57] LABS: GLUCOSE,POINT OF CARE 103 MG/DL (70-110)
[2016-10-30 20:57] LABS: GLUCOSE,POINT OF CARE 101 MG/DL (70-110)
[2016-10-30 20:57] LABS: GLUCOSE,POINT OF CARE 113 MG/DL (70-110)
[2016-10-30 23:32] VITALS: BP 141/74
[2016-10-31] MEDS: HEPARIN SODIUM,PORCINE 5,000 UNITS/ML VIAL SQ SCH ×2 (00:34→08:01)
[2016-10-31] MEDS: METOCLOPRAMIDE HCL 5 MG/ML 2 ML VIAL IVP SCH ×3 (00:34→16:07)
[2016-10-31] MEDS: LORazepam 1 MG TABLET PO SCH ×3 (00:34→16:07)
[2016-10-31] MEDS: LevETIRAcetam 500 MG in DEXTROSE 5%-WATER 100 ML IV SCH ×2 (03:34→16:06)
[2016-10-31] MEDS: ACETAMINOPHEN 325 MG TABLET PO PRN (03:34)
[2016-10-31] MEDS: MEROPENEM 1 GM in SODIUM CHLORIDE 0.9% 100 ML IV SCH ×3 (03:34→20:09)
[2016-10-31] MEDS ORDERED: SODIUM CHLORIDE 0.9% 250 ML IV ONE (03:51)
[2016-10-31 05:30] VITALS: BP 158/99
[2016-10-31 07:17] LABS: GLUCOSE,POINT OF CARE 105 MG/DL (70-110)
[2016-10-31 07:56] VITALS: BP 137/68
[2016-10-31] MEDS: SIMETHICONE 80 MG CHEWABLE TABLET CHEW SCH ×3 (08:01→20:07)
[2016-10-31] MEDS: POLYETHYLENE GLYCOL 3350 17 GM PACKET GT SCH (08:02)
[2016-10-31] MEDS: GLYCOPYRROLATE 1 MG TABLET GT SCH ×3 (08:02→20:07)
[2016-10-31] MEDS: TRIHEXYPHENIDYL HCL 2 MG TABLET GT SCH ×3 (08:02→20:07)
[2016-10-31] MEDS: DIAZEPAM 5 MG TABLET GT SCH ×3 (08:02→20:07)
[2016-10-31] MEDS: PANTOPRAZOLE SODIUM 40 MG/VIAL IVP SCH (08:03)
[2016-10-31] MEDS: TiZANidine HCL 4 MG TABLET GT SCH ×3 (08:03→20:08)
[2016-10-31] MEDS: ASCORBIC ACID 500 MG TABLET GT SCH (08:03)
[2016-10-31] MEDS: DOCUSATE SODIUM 100 MG CAPSULE PO SCH ×2 (08:04→20:07)
[2016-10-31] MEDS: PHENOBARBITAL 30 MG/7.5 ML PEG SCH ×3 (08:04→20:08)
[2016-10-31] MEDS: CARVEDILOL 12.5 MG TABLET PO SCH ×2 (08:04→20:07)
[2016-10-31] MEDS: CHOLECALCIFEROL (VIT D3) 1,000 UNITS TABLET PO SCH (08:04)
[2016-10-31] MEDS: PHENYTOIN SODIUM 300 MG in SODIUM CHLORIDE 0.9% 100 ML IV SCH (08:24)
[2016-10-31 09:10] LABS: BASOPHILS # (AUTO) 0.02 K/uL (0.00-0.20); BASOPHILS % (AUTO) 0.3 % (0.0-2.0); EOSINOPHILS # (AUTO) 0.09 K/uL (0.00-0.70); EOSINOPHILS % (AUTO) 1.52 % (1.0-6.0); HEMATOCRIT 35.1 % (41-53); HEMOGLOBIN 11.8 g/dL (13.5-17.5); LYMPHOCYTES # (AUTO) 0.9 K/uL (1.0-4.8); LYMPHOCYTES % (AUTO) 15.5 % (22.0-44.0); MEAN CORPUSCULAR HEMOGLOBIN 30.4 pg (26.0-34.0); MEAN CORPUSCULAR HGB CONC 33.6 G/dL (31.0-37.0); MEAN CORPUSCULAR VOLUME 91 fL (80-100); MONOCYTES # (AUTO) 0.6 K/uL (0.1-1.0); MONOCYTES % (AUTO) 9.7 % (2.0-9.0); NEUTROPHILS # (AUTO) 4.4 K/uL (1.8-7.7); PLATELET COUNT (AUTO) 278 K/uL (150-450); RED BLOOD CELL COUNT(AUTO) 3.87 MIL/uL (4.50-5.90); RED CELL DISTRIBUTION WIDTH 12.7 % (11.5-14.5)
[2016-10-31 11:06] VITALS: BP 128/82
[2016-10-31 11:53] LABS: GLUCOSE,POINT OF CARE 99 MG/DL (70-110)
[2016-10-31] MEDS: DEXTROSE 5%-0.45% SODIUM CHL 1,000 ML IV SCH (12:14)
[2016-10-31] MEDS: PANTOPRAZOLE SODIUM 80 MG in SODIUM CHLORIDE 0.9% 500 ML IV SCH ×2 (12:15→22:14)
[2016-10-31 12:19] LABS: BASOPHILS % (AUTO) 0.3 % (0.0-2.0); EOSINOPHILS % (AUTO) 1.6 % (1.0-6.0); HEMATOCRIT 34.9 % (41-53); HEMOGLOBIN 11.5 g/dL (13.5-17.5); LYMPHOCYTES % (AUTO) 15.9 % (22.0-44.0); MEAN CORPUSCULAR HEMOGLOBIN 29.9 pg (26.0-34.0); MEAN CORPUSCULAR HGB CONC 32.9 G/dL (31.0-37.0); MEAN CORPUSCULAR VOLUME 91 fL (80-100); MONOCYTES # (AUTO) 0.6 K/uL (0.1-1.0); MONOCYTES % (AUTO) 10.5 % (2.0-9.0); NEUTROPHILS # (AUTO) 4.3 K/uL (1.8-7.7); NEUTROPHILS % (AUTO) 71.7 % (40.0-70.0); PLATELET COUNT (AUTO) 300 K/uL (150-450); RED BLOOD CELL COUNT(AUTO) 3.85 MIL/uL (4.50-5.90); RED CELL DISTRIBUTION WIDTH 13.1 % (11.5-14.5)
[2016-10-31 16:09] VITALS: BP 124/80
[2016-10-31 19:52] VITALS: BP 134/76
[2016-10-31 22:47] LABS: GLUCOSE,POINT OF CARE 108 MG/DL (70-110)
[2016-10-31 23:54] VITALS: BP 111/68
[2016-11-01] MEDS: LORazepam 1 MG TABLET PO SCH ×4 (00:27→23:05)
[2016-11-01] MEDS: METOCLOPRAMIDE HCL 5 MG/ML 2 ML VIAL IVP SCH ×4 (00:27→23:05)
[2016-11-01] MEDS: LevETIRAcetam 500 MG in DEXTROSE 5%-WATER 100 ML IV SCH ×2 (04:15→15:57)
[2016-11-01] MEDS: MEROPENEM 1 GM in SODIUM CHLORIDE 0.9% 100 ML IV SCH ×3 (04:15→23:01)
[2016-11-01] MEDS ORDERED: SODIUM CHLORIDE 0.9% 100 ML ONE (04:21)
[2016-11-01 04:48] VITALS: BP 155/95
[2016-11-01] MEDS: DEXTROSE 5%-0.45% SODIUM CHL 1,000 ML IV SCH ×2 (06:45→23:02)
[2016-11-01 07:24] LABS: ANION GAP 9 mmol/L (8-16); CALCIUM, TOTAL 7.4 mg/dL (8.8-10.5); CARBON DIOXIDE 28 mmol/L (22-29); CHLORIDE 104 mmol/L (98-107); GLOMERULAR FILTR. RATE CALC > 60 mL/min (>60); POTASSIUM 3.1 mmol/L (3.5-5.1); SODIUM SERUM 141 mmol/L (136-145); UREA NITROGEN, BLOOD 7 mg/dL (7-18)
[2016-11-01 07:28] LABS: BASOPHILS # (AUTO) 0.02 K/uL (0.00-0.20); BASOPHILS % (AUTO) 0.4 % (0.0-2.0); EOSINOPHILS # (AUTO) 0.08 K/uL (0.00-0.70); EOSINOPHILS % (AUTO) 1.62 % (1.0-6.0); HEMATOCRIT 28.7 % (41-53); HEMOGLOBIN 9.6 g/dL (13.5-17.5); LYMPHOCYTES # (AUTO) 0.9 K/uL (1.0-4.8); LYMPHOCYTES % (AUTO) 17.4 % (22.0-44.0); MEAN CORPUSCULAR HEMOGLOBIN 30.1 pg (26.0-34.0); MEAN CORPUSCULAR HGB CONC 33.3 G/dL (31.0-37.0); MEAN CORPUSCULAR VOLUME 90 fL (80-100); MONOCYTES # (AUTO) 0.5 K/uL (0.1-1.0); MONOCYTES % (AUTO) 9.4 % (2.0-9.0); NEUTROPHILS # (AUTO) 3.7 K/uL (1.8-7.7); NEUTROPHILS % (AUTO) 71.2 % (40.0-70.0); PLATELET COUNT (AUTO) 296 K/uL (150-450); RED BLOOD CELL COUNT(AUTO) 3.18 MIL/uL (4.50-5.90); WHITE BLOOD COUNT (AUTO) 5.2 K/uL (4.5-11.0)
[2016-11-01 07:30] LABS: INR 1.1 (0.9-1.1); PROTHROMBIN TIME 11.8 SEC (9.4-11.6)
[2016-11-01 07:31] VITALS: BP 120/63
[2016-11-01] MEDS: DIAZEPAM 5 MG TABLET GT SCH ×3 (08:06→20:05)
[2016-11-01] MEDS ORDERED: SODIUM CHLORIDE 0.9% 1,000 ML IV ONE ×2 (08:14→09:30)
[2016-11-01] MEDS: PANTOPRAZOLE SODIUM 80 MG in SODIUM CHLORIDE 0.9% 500 ML IV SCH ×2 (08:34→23:09)
[2016-11-01] MEDS: TiZANidine HCL 4 MG TABLET GT SCH ×3 (09:00→20:04)
[2016-11-01] MEDS: POLYETHYLENE GLYCOL 3350 17 GM PACKET GT SCH (09:00)
[2016-11-01] MEDS: TRIHEXYPHENIDYL HCL 2 MG TABLET GT SCH ×3 (09:00→20:06)
[2016-11-01] MEDS: SIMETHICONE 80 MG CHEWABLE TABLET CHEW SCH ×3 (09:00→20:04)
[2016-11-01] MEDS: DOCUSATE SODIUM 100 MG CAPSULE PO SCH ×2 (09:00→20:06)
[2016-11-01] MEDS: GLYCOPYRROLATE 1 MG TABLET GT SCH ×3 (09:00→20:05)
[2016-11-01] MEDS: PHENOBARBITAL 30 MG/7.5 ML PEG SCH ×3 (09:00→20:05)
[2016-11-01 10:46] LABS: GLUCOSE,POINT OF CARE 102 MG/DL (70-110)
[2016-11-01 10:47] LABS: GLUCOSE,POINT OF CARE 105 MG/DL (70-110)
[2016-11-01] MEDS ORDERED: PROPOFOL 1% 20 ML VIAL IVP ONE (12:00)
[2016-11-01 12:01] VITALS: BP 138/60
[2016-11-01] MEDS: CHOLECALCIFEROL (VIT D3) 1,000 UNITS TABLET PO SCH (12:11)
[2016-11-01] MEDS: ASCORBIC ACID 500 MG TABLET GT SCH (12:11)
[2016-11-01] MEDS: CARVEDILOL 12.5 MG TABLET PO SCH ×2 (12:15→20:06)
[2016-11-01] MEDS: POTASSIUM CHLORIDE 10% 40 MEQ/30 ML LIQUID UDCUP PEG PRN (12:16)
[2016-11-01] MEDS: PHENYTOIN SODIUM 300 MG in SODIUM CHLORIDE 0.9% 100 ML IV SCH (12:20)
[2016-11-01] MEDS: LORazepam 2 MG/ML VIAL IM PRN ×2 (12:31→15:01)
[2016-11-01 14:48] VITALS: BP 117/91
[2016-11-01 20:00] VITALS: BP 124/98
[2016-11-01 23:55] VITALS: BP 150/66
[2016-11-02 04:28] VITALS: BP 115/80
[2016-11-02] MEDS: MEROPENEM 1 GM in SODIUM CHLORIDE 0.9% 100 ML IV SCH ×3 (06:05→20:36)
[2016-11-02] MEDS: LevETIRAcetam 500 MG in DEXTROSE 5%-WATER 100 ML IV SCH ×2 (06:05→15:58)
[2016-11-02 07:13] VITALS: BP 111/68
[2016-11-02] MEDS: POLYETHYLENE GLYCOL 3350 17 GM PACKET GT SCH (09:00)
[2016-11-02] MEDS: DOCUSATE SODIUM 100 MG CAPSULE PO SCH ×2 (09:00→20:27)
[2016-11-02] MEDS: METOCLOPRAMIDE HCL 5 MG/ML 2 ML VIAL IVP SCH ×2 (09:20→15:56)
[2016-11-02] MEDS ORDERED: SODIUM CHLORIDE 0.9% 1,000 ML IV ONE ×2 (09:23→09:30)
[2016-11-02 11:46] VITALS: BP 126/72
[2016-11-02] MEDS ORDERED: PROPOFOL 1% 20 ML VIAL IVP ONE (12:00)
[2016-11-02] MEDS: LORazepam 1 MG TABLET PO SCH ×2 (12:17→15:58)
[2016-11-02] MEDS: DIAZEPAM 5 MG TABLET GT SCH ×3 (12:17→20:27)
[2016-11-02] MEDS: CHOLECALCIFEROL (VIT D3) 1,000 UNITS TABLET PO SCH (12:18)
[2016-11-02] MEDS: GLYCOPYRROLATE 1 MG TABLET GT SCH ×3 (12:18→20:27)
[2016-11-02] MEDS: SIMETHICONE 80 MG CHEWABLE TABLET CHEW SCH ×3 (12:37→20:27)
[2016-11-02] MEDS: ASCORBIC ACID 500 MG TABLET GT SCH (12:37)
[2016-11-02] MEDS: TRIHEXYPHENIDYL HCL 2 MG TABLET GT SCH ×3 (12:37→20:27)
[2016-11-02] MEDS: CARVEDILOL 12.5 MG TABLET PO SCH ×2 (12:37→20:27)
[2016-11-02] MEDS: TiZANidine HCL 4 MG TABLET GT SCH ×3 (12:37→20:27)
[2016-11-02] MEDS: PANTOPRAZOLE SODIUM 40 MG/VIAL IVP SCH ×2 (12:38→20:27)
[2016-11-02] MEDS: PHENYTOIN SODIUM 300 MG in SODIUM CHLORIDE 0.9% 100 ML IV SCH (12:38)
[2016-11-02] MEDS: PHENOBARBITAL 30 MG/7.5 ML PEG SCH ×3 (12:38→20:27)
[2016-11-02 12:45] LABS: BASOPHILS % (AUTO) 0.5 % (0.0-2.0); EOSINOPHILS % (AUTO) 1.4 % (1.0-6.0); HEMATOCRIT 38.8 % (41-53); HEMOGLOBIN 12.7 g/dL (13.5-17.5); LYMPHOCYTES # (AUTO) 1.4 K/uL (1.0-4.8); LYMPHOCYTES % (AUTO) 15.5 % (22.0-44.0); MEAN CORPUSCULAR HEMOGLOBIN 29.6 pg (26.0-34.0); MEAN CORPUSCULAR HGB CONC 32.7 G/dL (31.0-37.0); MEAN CORPUSCULAR VOLUME 90 fL (80-100); MONOCYTES # (AUTO) 0.7 K/uL (0.1-1.0); MONOCYTES % (AUTO) 7.9 % (2.0-9.0); NEUTROPHILS # (AUTO) 6.8 K/uL (1.8-7.7); NEUTROPHILS % (AUTO) 74.7 % (40.0-70.0); PLATELET COUNT (AUTO) 418 K/uL (150-450); RED CELL DISTRIBUTION WIDTH 13.3 % (11.5-14.5); WHITE BLOOD COUNT (AUTO) 9.2 K/uL (4.5-11.0)
[2016-11-02 15:04] VITALS: BP 128/82
[2016-11-02 19:28] VITALS: BP 140/57
[2016-11-02] MEDS: ACETAMINOPHEN 325 MG TABLET PO PRN (20:29)
[2016-11-02 23:45] VITALS: BP 114/56
[2016-11-03] MEDS: METOCLOPRAMIDE HCL 5 MG/ML 2 ML VIAL IVP SCH ×3 (00:55→15:34)
[2016-11-03] MEDS: ACETAMINOPHEN 325 MG TABLET PO PRN ×3 (01:35→19:57)
[2016-11-03] MEDS: LevETIRAcetam 500 MG in DEXTROSE 5%-WATER 100 ML IV SCH ×2 (03:26→15:34)
[2016-11-03] MEDS: MEROPENEM 1 GM in SODIUM CHLORIDE 0.9% 100 ML IV SCH ×3 (03:27→19:55)
[2016-11-03 04:46] VITALS: BP 115/65
[2016-11-03 07:13] VITALS: BP 141/95
[2016-11-03 07:34] LABS: ANION GAP 16 mmol/L (8-16); CALCIUM, TOTAL 9.4 mg/dL (8.8-10.5); CARBON DIOXIDE 26 mmol/L (22-29); CHLORIDE 104 mmol/L (98-107); CREATININE 0.49 mg/dL (0.60-1.30); GLOMERULAR FILTR. RATE CALC > 60 mL/min (>60); POTASSIUM 4.4 mmol/L (3.5-5.1); SODIUM SERUM 146 mmol/L (136-145); UREA NITROGEN, BLOOD 11 mg/dL (7-18)
[2016-11-03 08:31] LABS: BASOPHILS % (AUTO) 0.3 % (0.0-2.0); EOSINOPHILS % (AUTO) 1.6 % (1.0-6.0); HEMATOCRIT 37.9 % (41-53); HEMOGLOBIN 12.4 g/dL (13.5-17.5); LYMPHOCYTES # (AUTO) 1.4 K/uL (1.0-4.8); LYMPHOCYTES % (AUTO) 14.7 % (22.0-44.0); MEAN CORPUSCULAR HEMOGLOBIN 29.6 pg (26.0-34.0); MEAN CORPUSCULAR HGB CONC 32.6 G/dL (31.0-37.0); MEAN CORPUSCULAR VOLUME 91 fL (80-100); MONOCYTES # (AUTO) 0.6 K/uL (0.1-1.0); NEUTROPHILS # (AUTO) 7.4 K/uL (1.8-7.7); NEUTROPHILS % (AUTO) 77.4 % (40.0-70.0); PLATELET COUNT (AUTO) 409 K/uL (150-450); RED BLOOD CELL COUNT(AUTO) 4.18 MIL/uL (4.50-5.90); RED CELL DISTRIBUTION WIDTH 13.3 % (11.5-14.5); WHITE BLOOD COUNT (AUTO) 9.5 K/uL (4.5-11.0)
[2016-11-03] MEDS: SIMETHICONE 80 MG CHEWABLE TABLET CHEW SCH ×3 (08:45→19:56)
[2016-11-03] MEDS: TiZANidine HCL 4 MG TABLET GT SCH ×3 (08:47→19:56)
[2016-11-03] MEDS: TRIHEXYPHENIDYL HCL 2 MG TABLET GT SCH ×3 (08:48→19:56)
[2016-11-03] MEDS: DIAZEPAM 5 MG TABLET GT SCH ×3 (08:48→19:57)
[2016-11-03] MEDS: ASCORBIC ACID 500 MG TABLET GT SCH (08:48)
[2016-11-03] MEDS: GLYCOPYRROLATE 1 MG TABLET GT SCH ×3 (08:48→19:56)
[2016-11-03] MEDS: POLYETHYLENE GLYCOL 3350 17 GM PACKET GT SCH (08:48)
[2016-11-03] MEDS: CHOLECALCIFEROL (VIT D3) 1,000 UNITS TABLET PO SCH (08:49)
[2016-11-03] MEDS: DOCUSATE SODIUM 100 MG CAPSULE PO SCH ×2 (08:49→19:56)
[2016-11-03] MEDS: PANTOPRAZOLE SODIUM 40 MG/VIAL IVP SCH ×2 (08:49→19:57)
[2016-11-03] MEDS: CARVEDILOL 12.5 MG TABLET PO SCH ×2 (08:49→20:21)
[2016-11-03] MEDS: PHENOBARBITAL 30 MG/7.5 ML PEG SCH ×3 (08:49→19:57)
[2016-11-03] MEDS: PHENYTOIN SODIUM 300 MG in SODIUM CHLORIDE 0.9% 100 ML IV SCH (08:51)
[2016-11-03 11:19] VITALS: BP 119/70
[2016-11-03 15:11] VITALS: BP 140/69
[2016-11-03] MEDS ORDERED: SODIUM CHLORIDE 0.9% 250 ML IV ONE (15:58)
[2016-11-03 19:46] VITALS: BP 98/40
[2016-11-03 23:16] VITALS: BP 126/60
[2016-11-04] MEDS: METOCLOPRAMIDE HCL 5 MG/ML 2 ML VIAL IVP SCH ×2 (00:11→07:51)
[2016-11-04] MEDS: LevETIRAcetam 500 MG in DEXTROSE 5%-WATER 100 ML IV SCH (03:08)
[2016-11-04] MEDS: MEROPENEM 1 GM in SODIUM CHLORIDE 0.9% 100 ML IV SCH ×2 (03:47→12:00)
[2016-11-04 04:16] VITALS: BP 110/64
[2016-11-04] MEDS: PANTOPRAZOLE SODIUM 40 MG/VIAL IVP SCH (07:44)
[2016-11-04] MEDS: PHENOBARBITAL 30 MG/7.5 ML PEG SCH ×3 (07:44→20:50)
[2016-11-04] MEDS: CHOLECALCIFEROL (VIT D3) 1,000 UNITS TABLET PO SCH (07:44)
[2016-11-04] MEDS: DIAZEPAM 5 MG TABLET GT SCH ×3 (07:48→20:49)
[2016-11-04] MEDS: CARVEDILOL 12.5 MG TABLET PO SCH ×2 (07:48→20:50)
[2016-11-04] MEDS: TiZANidine HCL 4 MG TABLET GT SCH ×3 (07:49→20:52)
[2016-11-04] MEDS: TRIHEXYPHENIDYL HCL 2 MG TABLET GT SCH ×3 (07:49→20:51)
[2016-11-04] MEDS: GLYCOPYRROLATE 1 MG TABLET GT SCH ×3 (07:50→20:55)
[2016-11-04] MEDS: ASCORBIC ACID 500 MG TABLET GT SCH (07:50)
[2016-11-04] MEDS: SIMETHICONE 80 MG CHEWABLE TABLET CHEW SCH ×3 (07:50→20:55)
[2016-11-04 07:52] VITALS: BP 153/70
[2016-11-04] MEDS: POLYETHYLENE GLYCOL 3350 17 GM PACKET GT SCH (08:22)
[2016-11-04] MEDS: DOCUSATE SODIUM 100 MG CAPSULE PO SCH ×2 (08:24→20:56)
[2016-11-04 08:57] LABS: GLUCOSE,POINT OF CARE 77 MG/DL (70-110)
[2016-11-04] MEDS: PHENYTOIN SODIUM 300 MG in SODIUM CHLORIDE 0.9% 100 ML IV SCH (09:15)
[2016-11-04 11:34] VITALS: BP 129/81
[2016-11-04] MEDS: ACETAMINOPHEN 325 MG TABLET PO PRN (12:00)
[2016-11-04 13:02] LABS: GLUCOSE,POINT OF CARE 115 MG/DL (70-110)
[2016-11-04 13:57] LABS: GLUCOSE,POINT OF CARE 112 MG/DL (70-110)
[2016-11-04] MEDS ORDERED: SODIUM CHLORIDE 0.9% 100 ML ONE (14:46)
[2016-11-04] MEDS: METOCLOPRAMIDE HCL 5 MG TABLET PEG SCH ×2 (15:01→20:49)
[2016-11-04 15:14] VITALS: BP 156/88
[2016-11-04] MEDS: INSULIN REGULAR, HUMAN 100 UNITS/ML SQ PRN ×2 (17:49→23:48)
[2016-11-04 18:22] LABS: GLUCOSE,POINT OF CARE 107 MG/DL (70-110)
[2016-11-04 18:27] LABS: GLUCOSE,POINT OF CARE 114 MG/DL (70-110)
[2016-11-04 18:27] LABS: GLUCOSE,POINT OF CARE 135 MG/DL (70-110)
[2016-11-04 19:24] VITALS: BP 144/94
[2016-11-04] MEDS: LevETIRAcetam 100 MG/ML 5 ML SOLUTION UDCUP PEG SCH (20:53)
[2016-11-04 23:21] VITALS: BP 127/84
[2016-11-05 04:19] VITALS: BP 165/76
[2016-11-05 07:55] VITALS: BP 149/94
[2016-11-05] MEDS: PHENOBARBITAL 30 MG/7.5 ML PEG SCH ×3 (08:18→20:39)
[2016-11-05] MEDS: SIMETHICONE 80 MG CHEWABLE TABLET CHEW SCH ×3 (08:23→20:34)
[2016-11-05] MEDS: TRIHEXYPHENIDYL HCL 2 MG TABLET GT SCH ×3 (08:24→20:34)
[2016-11-05] MEDS: GLYCOPYRROLATE 1 MG TABLET GT SCH ×3 (08:25→20:34)
[2016-11-05] MEDS: ASCORBIC ACID 500 MG TABLET GT SCH (08:25)
[2016-11-05] MEDS: DIAZEPAM 5 MG TABLET GT SCH ×3 (08:25→20:34)
[2016-11-05] MEDS: METOCLOPRAMIDE HCL 5 MG TABLET PEG SCH ×3 (08:26→20:34)
[2016-11-05] MEDS: LevETIRAcetam 100 MG/ML 5 ML SOLUTION UDCUP PEG SCH ×2 (08:26→20:34)
[2016-11-05] MEDS: PHENYTOIN 100 MG/4 ML SUSPENSION UDCUP PEG SCH (08:26)
[2016-11-05] MEDS: LANSOPRAZOLE 30 MG SOLUBLE TABLET PEG SCH (08:26)
[2016-11-05] MEDS: TiZANidine HCL 4 MG TABLET GT SCH ×3 (08:26→20:38)
[2016-11-05] MEDS: CHOLECALCIFEROL (VIT D3) 1,000 UNITS TABLET PO SCH (08:28)
[2016-11-05] MEDS: CARVEDILOL 12.5 MG TABLET PO SCH ×2 (08:28→20:34)
[2016-11-05] MEDS: DOCUSATE SODIUM 100 MG CAPSULE PO SCH ×2 (08:49→20:34)
[2016-11-05] MEDS: POLYETHYLENE GLYCOL 3350 17 GM PACKET GT SCH (08:49)
[2016-11-05 11:08] VITALS: BP 141/98
[2016-11-05 15:18] VITALS: BP 145/89
[2016-11-05] MEDS: INSULIN REGULAR, HUMAN 100 UNITS/ML SQ PRN (18:04)
[2016-11-05 20:10] VITALS: BP 137/73
[2016-11-05 23:43] VITALS: BP 129/68
[2016-11-06 04:13] VITALS: BP 119/69
[2016-11-06 06:59] LABS: ANION GAP 3 mmol/L (8-16); CARBON DIOXIDE 34 mmol/L (22-29); CHLORIDE 98 mmol/L (98-107); CREATININE 0.38 mg/dL (0.60-1.30); GLOMERULAR FILTR. RATE CALC > 60 mL/min (>60); POTASSIUM 4.4 mmol/L (3.5-5.1); SODIUM SERUM 135 mmol/L (136-145); UREA NITROGEN, BLOOD 19 mg/dL (7-18)
[2016-11-06 07:34] VITALS: BP 131/70
[2016-11-06] MEDS: SIMETHICONE 80 MG CHEWABLE TABLET CHEW SCH (08:12)
[2016-11-06] MEDS: TRIHEXYPHENIDYL HCL 2 MG TABLET GT SCH (08:13)
[2016-11-06] MEDS: GLYCOPYRROLATE 1 MG TABLET GT SCH (08:14)
[2016-11-06] MEDS: DIAZEPAM 5 MG TABLET GT SCH (08:15)
[2016-11-06] MEDS: ASCORBIC ACID 500 MG TABLET GT SCH (08:15)
[2016-11-06] MEDS: TiZANidine HCL 4 MG TABLET GT SCH (08:16)
[2016-11-06] MEDS: CARVEDILOL 12.5 MG TABLET PO SCH (08:17)
[2016-11-06] MEDS: LANSOPRAZOLE 30 MG SOLUBLE TABLET PEG SCH (08:17)
[2016-11-06] MEDS: METOCLOPRAMIDE HCL 5 MG TABLET PEG SCH (08:17)
[2016-11-06] MEDS: CHOLECALCIFEROL (VIT D3) 1,000 UNITS TABLET PO SCH (08:19)
[2016-11-06] MEDS: DOCUSATE SODIUM 100 MG CAPSULE PO SCH (08:40)
[2016-11-06] MEDS: POLYETHYLENE GLYCOL 3350 17 GM PACKET GT SCH (08:40)
[2016-11-06] MEDS: PHENOBARBITAL 30 MG/7.5 ML PEG SCH ×2 (09:00→13:39)
[2016-11-06] MEDS ORDERED: DIAZ10 GT (10:51)
[2016-11-06] MEDS ORDERED: BACL20TA GT (10:51)
[2016-11-06] MEDS ORDERED: PHEN-649 GT (10:54)
[2016-11-06] MEDS ORDERED: PHENL GT (10:55)
[2016-11-06] MEDS ORDERED: LEVE500T53 GT (10:56)
[2016-11-06] MEDS ORDERED: CARV6 GT (10:57)
[2016-11-06 11:12] VITALS: BP 146/86
[2016-11-06] MEDS: LevETIRAcetam 100 MG/ML 5 ML SOLUTION UDCUP PEG SCH (11:33)
[2016-11-06] MEDS: PHENYTOIN 100 MG/4 ML SUSPENSION UDCUP PEG SCH (11:34)
[2016-11-06 12:46] LABS: ABG A-A DIFF O2 26.4 mmHg (10-20.0); ABG BASE EXCESS 8.9 mmol/L (-2.0-3.0); ABG HCO3 31.3 mmol/L (22.0-26.0); ABG PCO2 51 mmHg (35-45); TEMPERATURE, FAHRENHEIT, BG 98.6 FAHREN (96.0-98.6)
[2016-11-06 12:48] LABS: ALLEN TEST, BLOOD GAS Positive
[2016-11-06 15:35] VITALS: BP 140/75
[2016-11-07 17:03] LABS: GLUCOSE,POINT OF CARE 135 MG/DL (70-110)
[2016-11-07 17:08] LABS: GLUCOSE,POINT OF CARE 113 MG/DL (70-110)
[2016-11-07 17:08] LABS: GLUCOSE,POINT OF CARE 123 MG/DL (70-110)
[2016-11-07 17:12] LABS: GLUCOSE COMMENT 1 Received Meds; GLUCOSE,POINT OF CARE 83 MG/DL (70-110)
== END 2016-11-06 18:00 | DRG 720 ==
LOC: EMS 16:22 → 5N 21:00 → ICU 10-14 11:29 → 5S 10-28 22:30
PROVIDERS: ADMIT Internal Medicine; ATTEND Internal Medicine
PROC: 5A1955Z Respiratory Ventilation, Greater than 96 Consecutive Hours (ICD-10-PCS; principal; 2016-10-14)
PROC: 0BH18EZ Insertion of Endotracheal Airway into Trachea, Via Natural or Artificial Opening Endoscopic (ICD-10-PCS; 2016-10-14)
PROC: 0T2BX0Z Change Drainage Device in Bladder, External Approach (ICD-10-PCS; 2016-10-14)
PROC: 4A00X4Z Measurement of Central Nervous Electrical Activity, External Approach (ICD-10-PCS; 2016-10-17)
PROC: 02HV33Z Insertion of Infusion Device into Superior Vena Cava, Percutaneous Approach (ICD-10-PCS; 2016-10-24)
PROC: B548ZZA Ultrasonography of Superior Vena Cava, Guidance (ICD-10-PCS; 2016-10-24)
PROC: 0DJD8ZZ Inspection of Lower Intestinal Tract, Via Natural or Artificial Opening Endoscopic (ICD-10-PCS; 2016-11-01)
PROC: 0DB68ZX Excision of Stomach, Via Natural or Artificial Opening Endoscopic, Diagnostic (ICD-10-PCS; 2016-11-02)
DX: A41.9 Sepsis, unspecified organism (principal); J96.01 Acute respiratory failure with hypoxia; J69.0 Pneumonitis due to inhalation of food and vomit; G93.40 Encephalopathy, unspecified; E72.20 Disorder of urea cycle metabolism, unspecified; N17.9 Acute kidney failure, unspecified; E87.0 Hyperosmolality and hypernatremia; N31.9 Neuromuscular dysfunction of bladder, unspecified; M41.9 Scoliosis, unspecified; N39.0 Urinary tract infection, site not specified; G80.9 Cerebral palsy, unspecified; G40.909 Epilepsy, unspecified, not intractable, without status epilepticus; E86.0 Dehydration; E87.6 Hypokalemia; F79 Unspecified intellectual disabilities; T42.3X5A Adverse effect of barbiturates, initial encounter; Z16.24 Resistance to multiple antibiotics; G10 Huntington's disease; K92.2 Gastrointestinal hemorrhage, unspecified; K64.4 Residual hemorrhoidal skin tags; K29.70 Gastritis, unspecified, without bleeding; R13.10 Dysphagia, unspecified; K59.00 Constipation, unspecified; K56.7 Ileus, unspecified; B96.1 Klebsiella pneumoniae [K. pneumoniae] as the cause of diseases classified elsewhere; I10 Essential (primary) hypertension; D63.8 Anemia in other chronic diseases classified elsewhere; Y93.89 Activity, other specified; Z79.899 Other long term (current) drug therapy; Z78.1 Physical restraint status; Z74.01 Bed confinement status; Z93.1 Gastrostomy status; Y92.89 Other specified places as the place of occurrence of the external cause; Y99.8 Other external cause status; T85.79XA Infection and inflammatory reaction due to other internal prosthetic devices, implants and grafts, initial encounter
CPT/HCPCS: 36245; 36569; 70450; 74000; 76770; 76937; 82306; 82570; 82805; 82948; 82962; 83605; 83735; 83930; 83935; 84100; 84132; 84300; 84439; 84443; 84540; 87040; 87070; 87081; 87086; 87147; 87205; 93005; 93306; 94002; 94003; 94640; 95816; 96360; 96361; 99285; C9113; G0480; G0481; J0696; J0712; J1165; J1580; J1644; J1956; J2060; J2185; J2250; J2543; J2704; J2765; J3370; J3480; J3490; J7030; J7040; J7050; J7060; P9041